=== PATIENT | male | born 1950 | race Two or more races ===

== ENCOUNTER 2023-10-22 11:58 | Emergency (ER) | payer MEDICARE, MEDICAID ==
[~2023-10-22] VITALS: Ht 177.8 cm; Wt 98.6 kg
[2023-10-22 12:50] LABS: Urine Bacteria None Seen /hpf (None Seen)
[2023-10-22 13:09] LABS: Urine Blood Negative /uL (Negative); Urine Clarity Clear (Clear); Urine Color Colorless (Yellow); Urine Protein, UAD Negative (Negative); Urine Specific Gravity 1.004 (1.001-1.035); Urine Urobilinogen Normal (Negative); Urine WBC <1 /hpf (0 - 3); Urine pH 6.5 (5.0-9.0)
[2023-10-22 13:33] LABS: Basophils # (auto) 0 10 ^3/uL (0-0.2); Basophils % (auto) 0.3 % (0.0-2.0); Eosinophils # (auto) 0.1 10 ^3/uL (0-0.8); Eosinophils % (auto) 1.6 % (0.0-7.0); Hematocrit 39.3 % (41.0-53.0); Hemoglobin 13.4 g/dL (13.5-17.5); Lymphocytes # (auto) 2.6 10 ^3/uL (0.4-5.4); Lymphocytes % (auto) 33.5 % (10.0-50.0); Mean Corpuscular Hgb Conc. 34.1 g/dL (32.0-36.0); Mean Corpuscular Volume 90.8 fL (80.0-100.0); Monocytes # (auto) 1.1 10 ^3/uL (0-1.3); Monocytes % (auto) 14.4 % (0.0-12.0); Neutrophils % (auto) 50.2 % (37.0-80.0); Nucleated Red Blood Cells % 0.1 %; Red Blood Cells 4.33 10^6/uL (4.5-5.90); Red Cell Distribution Width 15.8 % (11.8-14.3); White Blood Cell 7.9 10^3/uL (4.4-10.8)
[2023-10-22 13:50] LABS: Alkaline Phosphatase 74 U/L (46-116); Anion Gap 5 (5-15); Aspartate Aminotransferase 10 U/L (13-40); BUN/Creatinine Ratio 7.8 (10.0-20.0); Blood Urea Nitrogen 8 mg/dL (9-23); Carbon Dioxide 26 mmol/L (20-30); Chloride 102 mmol/L (98-107); Glucose 128 mg/dL (74-106); Potassium 4.2 mmol/L (3.5-5.1); Sodium 133 mmol/L (136-145)
[2023-10-22 13:51] LABS: Bilirubin, Total 0.3 mg/dL (0.2-1.0); Total Protein 6.5 g/dL (5.7-8.2)
[2023-10-22 13:52] LABS: Alanine Aminotransferase < 9 U/L (7-40)
[2023-10-22 14:05] VITALS: PULSE 81; RESP 18; O2SAT 96
[2023-10-22 15:39] VITALS: BP 148/78; PULSE 76; RESP 16; TEMP 98.1; O2SAT 92
== END 2023-10-22 15:44 | disposition home or self-care (01) ==
LOC: EDUNIT# 11:58 → EDBD 11:58 → ER 12:02
DX: R10.9 Unspecified abdominal pain (principal); F20.9 Schizophrenia, unspecified; F17.210 Nicotine dependence, cigarettes, uncomplicated
CPT/HCPCS: 36415; 74176; 80053; 81001; 85025

== ENCOUNTER 2023-10-22 23:57 | Inpatient (IN) | payer MEDICARE, MEDICAID ==
[~2023-10-22] VITALS: Ht 185.4 cm; Wt 95.0 kg
[2023-10-23 01:00] VITALS: PULSE 85; RESP 16; O2SAT 96
[2023-10-23] MEDS ORDERED: DOCUSATE SOD 100 MG CAP PO PRN (01:15)
[2023-10-23] MEDS ORDERED: MORPHINE SULFATE INJ 2 MG/ml SYRG IV PRN (01:15)
[2023-10-23] MEDS ORDERED: ACETAMINOPHEN 325 MG TAB PO PRN (01:15)
[2023-10-23] MEDS ORDERED: ONDANSETRON HCL 4 MG/2 ML VIAL IV PRN (01:15)
[2023-10-23] MEDS ORDERED: NITROGLYCERIN 0.4 MG SL TAB SL PRN (01:15)
[2023-10-23] MEDS: SODIUM CHLORIDE 0.9% 1,000 ML IV SCH (02:02)
[2023-10-23] MEDS: HYDROcodone-ACET 5/325MG TAB PO PRN (02:03)
[2023-10-23 03:15] VITALS: BP 145/86; PULSE 71; PULSE 84; RESP 17; RESP 18; TEMP 97.7; O2SAT 91
[2023-10-23 05:00] VITALS: BP 145/86; PULSE 84; RESP 17; TEMP 97.7; O2SAT 91
[2023-10-23] MEDS: MORPHINE SULFATE INJ 2 MG/ml SYRG IV PRN (05:41)
[2023-10-23 08:00] VITALS: BP 114/77; PULSE 87; PULSE 99; RESP 21; TEMP 98.1; O2SAT 93
[2023-10-23 12:00] VITALS: BP 113/66; PULSE 79; RESP 21; TEMP 98.3; O2SAT 93
== END 2023-10-23 12:10 | disposition left against medical advice (07) | DRG 641 ==
LOC: ER 23:57 → EDBD 23:57 → TELE 10-23 01:05 → TELE-WESTW 10-23 03:16
PROVIDERS: ADMIT Nurse Practitioner Family; ATTEND Nurse Practitioner Family
DX: E87.1 Hypo-osmolality and hyponatremia (principal); F20.0 Paranoid schizophrenia; R10.9 Unspecified abdominal pain; F17.210 Nicotine dependence, cigarettes, uncomplicated; N39.8 Other specified disorders of urinary system; Z53.29 Procedure and treatment not carried out because of patient's decision for other reasons; Z79.899 Other long term (current) drug therapy
CPT/HCPCS: 36415; 74176; 80053; 81001; 85025; 93005; 96360; G0378

== ENCOUNTER 2023-10-23 14:46 | Emergency (ER) | payer MEDICARE, MEDICAID ==
[~2023-10-23] VITALS: Ht 177.8 cm; Wt 95.8 kg
[2023-10-23 15:10] VITALS: BP 111/67; PULSE 98; RESP 16; O2SAT 91
[2023-10-23] MEDS: HYDROcodone-ACET 10/325MG TAB PO ONE (17:19)
== END 2023-10-23 18:26 | disposition home or self-care (01) ==
LOC: ER 14:55
DX: M79.18 Myalgia, other site (principal); R10.9 Unspecified abdominal pain; F17.210 Nicotine dependence, cigarettes, uncomplicated

== ENCOUNTER → 2023-10-23 | Emergency (ER) | payer MEDICARE, MEDICAID ==
[~2023-10-23] VITALS: Ht 177.8 cm; Wt 94.5 kg
[2023-10-23 21:59] VITALS: BP 97/57; PULSE 64; RESP 15; O2SAT 94
[2023-10-23 22:48] LABS: Urine Bacteria None Seen /hpf (None Seen)
[2023-10-23 23:05] LABS: Urine Blood 1+ /uL (Negative); Urine Clarity Clear (Clear); Urine Color Yellow (Yellow); Urine Mucus FEW (None Seen); Urine Protein, UAD TRACE (Negative); Urine Specific Gravity 1.019 (1.001-1.035); Urine Urobilinogen Normal (Negative); Urine WBC 1 /hpf (0 - 3)
== END | disposition left against medical advice (07) ==
LOC: ER 21:46
DX: R10.9 Unspecified abdominal pain (principal); F17.210 Nicotine dependence, cigarettes, uncomplicated; F20.9 Schizophrenia, unspecified
CPT/HCPCS: 74176; 81001

== ENCOUNTER 2024-01-14 12:09 | Emergency (ER) | payer MEDICARE, MEDICAID ==
[~2024-01-14] VITALS: Ht 175.3 cm; Wt 105.0 kg
[~2024-01-14 12:09] MED LIST: ATOR40TA52 PO; BISA-65 PR; DIVA-139 PO; DIVA-91 PO; MAGN400S25 PO; RIS1T PO; RISP0.2535 PO; RISP3TAB44 PO
[2024-01-14 13:15] VITALS: PULSE 77; RESP 16; O2SAT 96
[2024-01-14 15:46] LABS: Basophils # (auto) 0.1 10 ^3/uL (0-0.2); Basophils % (auto) 0.9 % (0.0-2.0); Eosinophils # (auto) 0.1 10 ^3/uL (0-0.8); Eosinophils % (auto) 1.8 % (0.0-7.0); Hematocrit 42.1 % (41.0-53.0); Hemoglobin 14.2 g/dL (13.5-17.5); Lymphocytes # (auto) 3.3 10 ^3/uL (0.4-5.4); Lymphocytes % (auto) 42.1 % (10.0-50.0); Mean Corpuscular Hemoglobin 31.4 pg (28.0-32.0); Mean Corpuscular Hgb Conc. 33.8 g/dL (32.0-36.0); Mean Corpuscular Volume 92.7 fL (80.0-100.0); Monocytes # (auto) 0.9 10 ^3/uL (0-1.3); Monocytes % (auto) 11.6 % (0.0-12.0); Neutrophils # (auto) 3.5 10 ^3/uL (1.6-8.6); Neutrophils % (auto) 43.6 % (37.0-80.0); Nucleated Red Blood Cells % 0.1 %; Platelet Count (auto) 318 10^3/uL (140-450); Red Blood Cells 4.54 10^6/uL (4.5-5.90); Red Cell Distribution Width 16.2 % (11.8-14.3); White Blood Cell 7.9 10^3/uL (4.4-10.8)
[2024-01-14 15:47] LABS: Anion Gap 6 (5-15); Carbon Dioxide 27 mmol/L (20-31); Chloride 102 mmol/L (98-107); Potassium 3.3 mmol/L (3.5-5.1); Sodium 135 mmol/L (136-145)
[2024-01-14 15:52] LABS: Glucose 80 mg/dL (74-106)
[2024-01-14 15:53] LABS: BUN/Creatinine Ratio 14.7 (10.0-20.0); Blood Alcohol < 3.0 mg/dL (<10); Blood Urea Nitrogen 15 mg/dL (9-23)
[2024-01-14] MEDS: POTASSIUM CHL 20 Meq TABLET PO ONE (16:21)
[2024-01-14 20:32] VITALS: RESP 16; O2SAT 96
[2024-01-14] MEDS: OLANZapine 5 MG TAB PO SCH (21:35)
[2024-01-14] MEDS: LORazepam 2MG/ML-1ML VIAL IM ONE (21:46)
[2024-01-15 07:30] VITALS: PULSE 78; RESP 16
[2024-01-16 07:47] VITALS: PULSE 85; RESP 17; O2SAT 95
[2024-01-16 08:00] VITALS: BP 146/72; PULSE 85; RESP 16; TEMP 98; O2SAT 95
[2024-01-16 09:37] LABS: Urine Bacteria None Seen /hpf (None Seen)
[2024-01-16 10:02] LABS: Urine Blood Negative /uL (Negative); Urine Clarity Clear (Clear); Urine Color Colorless (Yellow); Urine Protein, UAD Negative (Negative); Urine Specific Gravity 1.007 (1.001-1.035); Urine Urobilinogen Normal (Negative); Urine WBC <1 /hpf (0 - 3); Urine pH 6.5 (5.0-9.0)
[2024-01-16 10:09] LABS: Amphetamine Screen, Urine Neg (NEGATIVE)
[2024-01-16 10:10] LABS: Barbiturate Scree,Urine Neg (NEGATIVE); Benzodiazephine Screen, Urine Neg (NEGATIVE); Cocaine Screen, Urine Neg (NEGATIVE); Opiate Scree,Urine Neg (NEGATIVE)
[2024-01-16 10:11] LABS: Cannabinoid Screen, Urine Neg (NEGATIVE); Phencyclidine Screen, Urine Neg (NEGATIVE)
[2024-01-16] MEDS ORDERED: ONDANSETRON HCL 4 MG/2 ML VIAL IV PRN (15:15)
[2024-01-16] MEDS ORDERED: ACETAMINOPHEN 325 MG TAB PO PRN (15:15)
[2024-01-16] MEDS ORDERED: DOCUSATE SOD 100 MG CAP PO PRN (15:15)
[2024-01-16] MEDS ORDERED: HYDROcodone-ACET 5/325MG TAB PO PRN (15:15)
[2024-01-16] MEDS ORDERED: SODIUM CHLOR 0.9% PF (SALINE LOCK) 10ML VIAL/SYR IV SCH (22:00)
[2024-01-16] MEDS ORDERED: ATORVASTATIN 20 MG TAB PO SCH (22:00)
== END 2024-01-16 19:18 ==
LOC: EDBD 12:09 → EDUNIT# 12:09 → ER 12:09
DX: F20.9 Schizophrenia, unspecified (principal); E87.6 Hypokalemia; F17.200 Nicotine dependence, unspecified, uncomplicated; Z79.899 Other long term (current) drug therapy
CPT/HCPCS: 36415; 80048; 80307; 80320; 81001; 85025; 96372; 99285; J2060

== ENCOUNTER 2024-01-23 17:33 | Inpatient (IN) | payer MEDICARE, MEDICAID ==
[~2024-01-23] VITALS: Ht 175.3 cm; Wt 93.1 kg
--- NOTE | 2024-01-23 17:57 | ED.PDOC ---
Psychiatric HPI Comments 73 year old male presents to the ED with chief complaint of hallucinations. EMS reports patient is coming from [facility] with concern of auditory hallucinations and being very concerned with his own wellbeing. EMS relays patient has been experience the disturbances for a few days now. Patient denies any SI, HI, visual hallucinations, SOB, dizziness, headache, or chest pain. Time Seen by MD: 17:52 Primary Care Provider: UNKNOWN Reviewed Notes: Nurses Notes, Medications, Allergies Information Source: Patient Mode of Arrival: Ambulatory Severity: Unable to Care for Self, Able to Control Self Severity of Pain: None Severity of Mental Status: Moderate Severity of Symptoms: None Timing: Days Duration: Since onset Prehospital treatment: None Presents with: None History of: Schizophrenia Associated signs and symptoms: Hallucinations Past Medical History PAST MEDICAL HISTORY: High Lipids, HTN, Schizophrenia Surgical History (Other): Left hip surgery, splenectomy, pacemaker Family History Family History: Reviewed,noncontributory to illness, Unknown Social History Smoker: Cigarettes Alcohol: Denies ETOH Use Drugs: Marijuana, Methamphetamine Lives In: Home Constitutional: denies: chills, diaphoresis, fatigue, fever, malaise, sweats, weakness, others EENTM: denies: blurred vision, double vision, ear bleeding, ear discharge, ear drainage, ear pain, ear ringing, eye pain, eye redness, hearing loss, mouth pain, mouth swelling, nasal discharge, nose bleeding, nose congestion, nose pain, photophobia, tearing, throat pain, throat swelling, voice changes, others Respiratory: denies: cough, hemoptysis, orthopnea, SOB at rest, shortness of breath, SOB with excertion, stridor, wheezing, others Cardiovascular: denies: chest pain, dizzy spells, diaphoresis, Dyspnea on exertion, edema, irregular heart beat, left arm pain, lightheadedness, palpitations, PND, syncope, others Gastrointestinal: denies: abdomen distended, abdominal pain, blood streaked bowels, constipated, diarrhea, dysphagia, difficulty swallowing, hematemesis, melena, nausea, poor appetite, poor fluid intake, rectal bleeding, rectal pain, vomiting, others Genitourinary: denies: burning, dysuria, flank pain, frequency, hematuria, incontinence, penile discharge, penile sore, pain, testicle pain, testicle swelling, urgency, others Neurological: denies: dizziness, fainting, headache, left sided numbness, left sided weakness, numbness, paresthesia, pre-existing deficit, right sided numbness, right sided weakness, seizure, speech problems, tingling, tremors, weakness, others Musculoskeletal: denies: back pain, gout, joint pain, joint swelling, muscle pain, muscle stiffness, neck pain, others Integumetry: denies: bruises, change in color, change in hair/nails, dryness, laceration, lesions, lumps, rash, wounds, others Allergic/Immunocompromised: denies: Difficulty Healing, Frequent Infections, Hives, Itching, others Hematologic/Lymphatic: denies: anemia, blood clots, easy bleeding, easy bruising, swollen glands, others Endocrine: denies: excessive hunger, excessive sweating, excessive thirst, excessive urination, flushing, intolerance to cold, intolerance to heat, unexplained weight gain, unexplained weight loss, others Psychiatric: reports: schizophrenia; denies: anxiety, bipolar disorder, depression, hopeless, panic disorder, sleepless, suicidal, others All Other Systems: Reviewed and Negative Physical Exam General Appearance: Mild Distress HEENT: Normal ENT Inspection, Pharynx Normal, TMs Normal Neck: Full Range of Motion, Non-Tender, Normal, Normal Inspection Respiratory: Chest Non-Tender, Lungs Clear, No Accessory Muscle Use, No Respiratory Distress, Normal Breath Sounds Cardiovascular: No Edema, No JVD, No Murmur, No Gallop, Normal Peripheral Pulses, Regular Rate/Rhythm Breast Exam: Deferred Gastrointestinal: No Organomegaly, Non Tender, No Pulsatile Mass, Normal Bowel Sounds, Soft Genitalia: Deferred Pelvic: Deferred Rectal: Deferred Extremities: Inflammation, Normal capillary refill, Pedal edema Musculoskeletal : Apperance: Normal Neurologic: Alert, steam conditioner filling II-XII nml as Tested, Motor Weakness, Normal Affect, Normal Mood, No Sensory Deficits Cerebellar Function: Normal Reflexes: Normal Skin: Dry, Normal Color, Warm Lymphatic: No Adenopathy Was a procedure done? Was a procedure done?: No Psych Differential Dx Psych. Differential Dx: Anxiety, Hopeless, Other (Cellulitis) X-Ray, Labs, Meds, VS Vital Signs Date Time Temp Pulse Resp B/P (MAP) Pulse Ox O2 Delivery O2 Flow Rate FiO2 01/23/24 19:31 71 16 94 Room Air 01/23/24 19:31 97.8 71 16 130/60 (83) 94 97.8 01/23/24 17:33 98.4 86 18 120/78 (92) 97 Lab Test 01/23/24 18:35 Range/Units White Blood Count 7.0 4.4-10.8 10^3/uL Red Blood Count 4.60 4.5-5.90 10^6/uL Hemoglobin 14.5 13.5-17.5 g/dL Hematocrit 42.6 41.0-53.0 % Mean Corpuscular Volume 92.7 80.0-100.0 fL Mean Corpuscular Hemoglobin 31.5 28.0-32.0 pg Mean Corpuscular Hemoglobin Concent 34.0 32.0-36.0 g/dL Red Cell Distribution Width 16.2 H 11.8-14.3 % Platelet Count 294 140-450 10^3/uL Mean Platelet Volume 9.1 6.9-10.8 fL Neutrophils (%) (Auto) 44.6 37.0-80.0 % Lymphocytes (%) (Auto) 38.5 10.0-50.0 % Monocytes (%) (Auto) 12.2 H 0.0-12.0 % Eosinophils (%) (Auto) 4.4 0.0-7.0 % Basophils (%) (Auto) 0.3 0.0-2.0 % Neutrophils # (Auto) 3.1 1.6-8.6 10 ^3/uL Lymphocytes # (Auto) 2.7 0.4-5.4 10 ^3/uL Monocytes # (Auto) 0.9 0-1.3 10 ^3/uL Eosinophils # (Auto) 0.3 0-0.8 10 ^3/uL Basophils # (Auto) 0 0-0.2 10 ^3/uL Nucleated Red Blood Cells 0.1 % Sodium Level 138 136-145 mmol/L Potassium Level 4.4 3.5-5.1 mmol/L Chloride Level 105 98-107 mmol/L Carbon Dioxide Level 30 20-31 mmol/L Anion Gap 3 L 5-15 Blood Urea Nitrogen 17 9-23 mg/dL Creatinine 1.15 0.700-1.30 mg/dL Glomerular Filtration Rate Calc 68 >90 mL/min BUN/Creatinine Ratio 14.8 10.0-20.0 Serum Glucose 93 74-106 mg/dL Calcium Level 9.8 8.7-10.4 mg/dL Plasma/Serum Blood Alcohol < 3.0 <10 mg/dL The patient's CBC is within normal limits The chemistry panel is within normal limits. The alcohol level is negative At this time, an IV Hep-Lock was established The patient is being given clindamycin IV piggyback At this time, the patient is being admitted to the hospitalist. Images Reviewed?: Images reviewed and evaluated by me Time of 1ST Reevaluation: 19:48 Reevaluation 1ST: Unchanged Patient Education/Counseling: Diagnosis, Treatment, Prognosis Family Education/Counseling: No Family Present Departure 1 Departure Time of Disposition: 19:49 Impression: Primary Impression: Auditory hallucinations Additional Impressions: Psychosis Qualified Codes: F29 - Unspecified psychosis not due to a substance or known physiological condition Bilateral lower leg cellulitis Disposition: ADMITTED INPATIENT Admit to: Med Surg Condition: Fair Critical Care Note Critical Care Time?: No Stability Stability form required: Yes Unstable for transfer: ED Physician Assesment (Clinical assesment) Heart Score Heart Score: Heart Score Response (Comments) Value History N/A 0 EKG N/A 0 Age N/A 0 Risk Factors N/A 0 Troponin N/A 0 Total 0 I personally scribed for EZRA MCDANIEL MD ([email or web address]) on 01/23/24 at 17:57. Elec tronically submitted by Jonathan Pickett ([email or web address]). EZRA MCDANIEL MD Jan 23, 2024 17:57
[2024-01-23 19:19] LABS: Basophils # (auto) 0 10 ^3/uL (0-0.2); Basophils % (auto) 0.3 % (0.0-2.0); Eosinophils # (auto) 0.3 10 ^3/uL (0-0.8); Eosinophils % (auto) 4.4 % (0.0-7.0); Hematocrit 42.6 % (41.0-53.0); Hemoglobin 14.5 g/dL (13.5-17.5); Lymphocytes # (auto) 2.7 10 ^3/uL (0.4-5.4); Lymphocytes % (auto) 38.5 % (10.0-50.0); Mean Corpuscular Hemoglobin 31.5 pg (28.0-32.0); Mean Corpuscular Volume 92.7 fL (80.0-100.0); Monocytes # (auto) 0.9 10 ^3/uL (0-1.3); Monocytes % (auto) 12.2 % (0.0-12.0); Neutrophils # (auto) 3.1 10 ^3/uL (1.6-8.6); Neutrophils % (auto) 44.6 % (37.0-80.0); Nucleated Red Blood Cells % 0.1 %; Platelet Count (auto) 294 10^3/uL (140-450); Red Cell Distribution Width 16.2 % (11.8-14.3)
[2024-01-23 19:36] LABS: Chloride 105 mmol/L (98-107); Potassium 4.4 mmol/L (3.5-5.1); Sodium 138 mmol/L (136-145)
[2024-01-23 19:38] LABS: Anion Gap 3 (5-15); Calcium 9.8 mg/dL (8.7-10.4); Carbon Dioxide 30 mmol/L (20-31)
[2024-01-23 19:39] LABS: BUN/Creatinine Ratio 14.8 (10.0-20.0); Blood Alcohol < 3.0 mg/dL (<10); Blood Urea Nitrogen 17 mg/dL (9-23); Glucose 93 mg/dL (74-106)
[2024-01-23] MEDS: CLINDAMYCIN 600MG IV 50 ML IV ONE (20:22)
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
[2024-01-23] MEDS ORDERED: MORPHINE SULFATE INJ 2 MG/ml SYRG IV PRN (22:30)
[2024-01-23] MEDS ORDERED: ONDANSETRON HCL 4 MG/2 ML VIAL IV PRN (22:30)
[2024-01-23] MEDS ORDERED: ACETAMINOPHEN 325 MG TAB PO PRN (22:30)
[2024-01-23] MEDS ORDERED: NITROGLYCERIN 0.4 MG SL TAB SL PRN (22:30)
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
[2024-01-24] VITALS (8 sets, daily range): BP systolic 131–151; BP diastolic 62–79; PULSE 75–81; RESP 16–18; TEMP 97.6–98.4; O2SAT 94–98
[2024-01-24] MEDS: ceFAZolin 1GM/50ML 50 ML IV SCH (05:39)
[2024-01-24] MEDS: SODIUM CHLOR 0.9% PF (SALINE LOCK) 10ML VIAL/SYR IV SCH (05:39)
[2024-01-24] MEDS: BENZTROPINE MESY 0.5 MG TAB PO SCH (06:06)
[2024-01-24] MEDS: risperiDONE 1 MG TAB PO SCH (06:07)
[2024-01-24] MEDS: PROPRANOLOL HCL 20 MG TAB PO SCH (06:07)
--- NOTE | 2024-01-24 06:45 | DVH ---
PROCEDURE: radiographs. INDICATION: 73 years old, Male; ankle twist. TECHNIQUE: 2 views of the left ankle were obtained. COMPARISON: None FINDINGS: There is no evidence of fracture or dislocation. Joint spaces are maintained. The soft tis sues are unremarkable. IMPRESSION: 1. No fracture or dislocation.
[2024-01-24 07:32] LABS: Basophils # (auto) 0 10 ^3/uL (0-0.2); Basophils % (auto) 0.2 % (0.0-2.0); Eosinophils # (auto) 0.3 10 ^3/uL (0-0.8); Eosinophils % (auto) 3.7 % (0.0-7.0); Hematocrit 40.9 % (41.0-53.0); Lymphocytes # (auto) 4.3 10 ^3/uL (0.4-5.4); Lymphocytes % (auto) 53.1 % (10.0-50.0); Mean Corpuscular Hgb Conc. 34.1 g/dL (32.0-36.0); Mean Corpuscular Volume 93.8 fL (80.0-100.0); Monocytes # (auto) 0.8 10 ^3/uL (0-1.3); Monocytes % (auto) 10.2 % (0.0-12.0); Neutrophils # (auto) 2.7 10 ^3/uL (1.6-8.6); Neutrophils % (auto) 32.8 % (37.0-80.0); Nucleated Red Blood Cells % 0.1 %; Platelet Count (auto) 281 10^3/uL (140-450); Red Blood Cells 4.37 10^6/uL (4.5-5.90); Red Cell Distribution Width 15.7 % (11.8-14.3); White Blood Cell 8.1 10^3/uL (4.4-10.8)
[2024-01-24 07:43] LABS: Alanine Aminotransferase 23 U/L (7-40); Alkaline Phosphatase 67 U/L (46-116); Anion Gap 4 (5-15); Calcium 9.7 mg/dL (8.7-10.4); Carbon Dioxide 29 mmol/L (20-31); Chloride 106 mmol/L (98-107); Glucose 98 mg/dL (74-106); Potassium 4.2 mmol/L (3.5-5.1); Sodium 139 mmol/L (136-145)
[2024-01-24 07:44] LABS: Albumin 3.8 g/dL (3.2-4.8); Aspartate Aminotransferase 18 U/L (13-40); Bilirubin, Total 0.3 mg/dL (0.2-1.0); Total Protein 6.4 g/dL (5.7-8.2)
[2024-01-24 07:46] LABS: Blood Urea Nitrogen 16 mg/dL (9-23)
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
--- NOTE | 2024-01-24 11:24 | DVH ---
Bilateral lower extremity venous duplex Clinical History: severe tenderness to palpation in the calves Comparison: None Technique: Duplex Doppler evaluation of the deep venous systems of both lower extremities from the common femora l veins to the popliteal veins including color Doppler and spectral/pulsed waveform analysis was perf ormed. Findings: RIGHT SIDE: The common femoral vein demonstrates appropriate compressibility and waveform variability. There is compressibility/patency of the great saphenous vein at the proximal thigh. The femoral vein demonstrates appropriate compressibility and waveform variability. The deep femoral vein demonstrates appropriate compressibility and waveform variability. The popliteal vein demonstrates appropriate compressibility and waveform variability. There is color flow at the tibioperoneal trunk and in the posterior tibial vein. Mild subcutaneous edema noted in the calf. LEFT SIDE: The common femoral vein demonstrates appropriate compressibility and waveform variability. There is compressibility/patency of the great saphenous vein at the proximal thigh. The femoral vein demonstrates appropriate compressibility and waveform variability. The deep femoral vein demonstrates appropriate compressibility and waveform variability. The popliteal vein and calf vessels could not be evaluated due to patient refusal to continue with th e exam. Mildly prominent benign-appearing lymph nodes are seen in the left groin measuring up to 2.3 x 0.6 cm . Impression: 1. No evidence of DVT in the right lower extremity. 2. No DVT in the left common femoral and femoral veins. The popliteal and calf veins could not be valeria luated due to patient refusal continue with the test.
--- NOTE | 2024-01-24 11:57 | DVH ---
EXAM: XY CHEST PORTABLE Indication:cough Technique: Single frontal view of the chest was obtained Comparison: XY CHEST XRAY 1 VIEW on DOS: 11/04/23 FINDINGS: Lines and Tubes: None Lungs: No focal consolidation. Pleura: No effusion. No pneumothorax. Cardiomediastinal contours: Unremarkable Bones: No acute osseous abnormality. IMPRESSION: No acute cardiopulmonary disease.
[2024-01-24 12:26] LABS: Urine Bacteria None Seen /hpf (None Seen)
[2024-01-24 12:45] LABS: Urine Blood Negative /uL (Negative); Urine Clarity Clear (Clear); Urine Color Colorless (Yellow); Urine Protein, UAD Negative (Negative); Urine Specific Gravity 1.007 (1.001-1.035); Urine Urobilinogen Normal (Negative); Urine WBC <1 /hpf (0 - 3); Urine pH 7.5 (5.0-9.0)
[2024-01-24 12:56] LABS: Amphetamine Screen, Urine Neg (NEGATIVE); Barbiturate Scree,Urine Neg (NEGATIVE); Benzodiazephine Screen, Urine Neg (NEGATIVE); Cannabinoid Screen, Urine Neg (NEGATIVE); Cocaine Screen, Urine Neg (NEGATIVE); Opiate Scree,Urine Neg (NEGATIVE); Phencyclidine Screen, Urine Neg (NEGATIVE)
[2024-01-24 14:16] LABS: COVID19 ANTIGEN SOFIA FIA NEGATIVE (NEGATIVE)
[2024-01-24 14:17] LABS: Rapid Influenza A Negative (Negative); Rapid Influenza B Negative (Negative)
[2024-01-24] MEDS ORDERED: hydrALAZINE HCL 20 MG/ML VL IV PRN (15:15)
[2024-01-24] MEDS ORDERED: amLODIPine BESYLATE 5 MG TAB PO ONE (15:30)
[2024-01-24] MEDS: MUPIROCIN 2% OINT 15gm or 22gm FOR MRSA NARES EACHNOSTRI SCH (22:26)
[2024-01-25 05:00] VITALS: BP 111/61; PULSE 84; RESP 19; TEMP 98.1; O2SAT 92
[2024-01-25 05:29] LABS: Basophils # (auto) 0 10 ^3/uL (0-0.2); Basophils % (auto) 0.7 % (0.0-2.0); Eosinophils # (auto) 0.3 10 ^3/uL (0-0.8); Eosinophils % (auto) 4.1 % (0.0-7.0); Hematocrit 39.8 % (41.0-53.0); Hemoglobin 13.6 g/dL (13.5-17.5); Lymphocytes % (auto) 46.3 % (10.0-50.0); Mean Corpuscular Hemoglobin 32.2 pg (28.0-32.0); Mean Corpuscular Hgb Conc. 34.3 g/dL (32.0-36.0); Mean Corpuscular Volume 93.9 fL (80.0-100.0); Monocytes # (auto) 0.9 10 ^3/uL (0-1.3); Monocytes % (auto) 13.1 % (0.0-12.0); Neutrophils # (auto) 2.4 10 ^3/uL (1.6-8.6); Neutrophils % (auto) 35.8 % (37.0-80.0); Nucleated Red Blood Cells % 0.1 %; Platelet Count (auto) 272 10^3/uL (140-450); Red Blood Cells 4.24 10^6/uL (4.5-5.90); Red Cell Distribution Width 15.6 % (11.8-14.3); White Blood Cell 6.6 10^3/uL (4.4-10.8)
[2024-01-25 09:09] VITALS: BP 125/71; PULSE 68; RESP 22; TEMP 97.3; O2SAT 94
[2024-01-25] MEDS ORDERED: amLODIPine BESYLATE 5 MG TAB PO SCH (10:00)
[2024-01-25 13:00] VITALS: BP 136/69; PULSE 64; RESP 20; TEMP 97.2; O2SAT 97
[2024-01-25] MEDS ORDERED: CEPH500C PO (13:45)
[2024-01-25] MEDS ORDERED: MUPI2CRE17 EX (13:47)
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
== END 2024-01-25 13:23 | disposition home or self-care (01) | DRG 602 ==
LOC: EDBD 17:33 → EDUNIT# 17:33 → ER 17:46 → OVERFLOW 22:22 → CENTRAL 01-24 01:47
PROVIDERS: ADMIT Internal Medicine; ATTEND Internal Medicine
DX: L03.116 Cellulitis of left lower limb (principal); G92.8 Other toxic encephalopathy; F20.9 Schizophrenia, unspecified; F31.9 Bipolar disorder, unspecified; R73.03 Prediabetes; I10 Essential (primary) hypertension; F17.210 Nicotine dependence, cigarettes, uncomplicated; E78.5 Hyperlipidemia, unspecified; L03.115 Cellulitis of right lower limb; Z90.81 Acquired absence of spleen; Z95.0 Presence of cardiac pacemaker
CPT/HCPCS: 36415; 71045; 73600; 80048; 80053; 80307; 80320; 81001; 82306; 82607; 83036; 83880; 84443; 85025; 87081; 87086; 87426; 87804; 93970; G0378; J3490

== ENCOUNTER 2024-08-03 10:05 | Inpatient (IN) | payer MEDICARE, MEDICAID ==
[~2024-08-03] VITALS: Ht 175.3 cm; Wt 87.0 kg
[~2024-08-03 10:05] MED LIST changes: +CEPH500C PO; +MUPI2CRE17 EX
--- NOTE | 2024-08-03 10:28 | ED.PDOC ---
History of Present Illness HPI Comments 74M BIBA w/ prior MHx of COPD, SZ, GERD, high lipids, liver [place], HTN and Schizophrenic; SHx of Splenectomy, left hip Sx, pacemaker and c/ of ALOC. EMS report that the pt pt was picked up via [facility], for the pt having had ALOC for the past 3 days and of the pt's speech declining, pt is lethargic, and tired. Denies chills, fever, N/V/D, SOB, CP. No other associated symptoms, modifiers, recent injuries or sick contacts present at this time. Chief Complaint: ALOC Time Seen by MD: 10:00 Primary Care Provider: UNKNOWN Reviewed Notes: Nurses Notes, Medications, Allergies Allergies: Coded Allergies: NO KNOWN ALLERGIES (Unverified , 10/23/23) Home Meds Active Scripts Mupirocin Calcium (Topical) (MUPIROCIN) 2 % Cre, 2 % EX 2XW for 4 Days, #1 CRE Prov:TYLOR REDD RESIDENT 01/25/24 Cephalexin Monohydrate (Cephalexin) 500 Mg Cap, 1 CAP PO BID for 5 Days, #20 CAP Prov:TYLOR REDD RESIDENT 01/25/24 Risperidone (RisperDAL TABLET) 1 Mg Tb, 1 TAB PO BID, #60 TAB 1 Refill Prov:BETHANY EMERY MD 11/09/23 Reported Medications Bisacodyl (Bisacodyl Ec) 5 Mg Tab, 10 MG SC DAILYP PRN for FOR CONSTIPATION, MG 11/05/23 Magnesium Hydroxide (Milk Of Magnesia) 400 Mg/5 Ml [place], 400 MG PO, ML 11/05/23 Risperidone (Risperidone) 3 Mg Tab, 1 TAB PO BID, #60 TAB 2 Refills 11/05/23 Risperidone (Risperidone) 0.25 Mg Tab, 0.25 MG PO BID, TAB 11/05/23 Divalproex Sodium (Depakote) 500 Mg Tab, 1 TAB PO BID, #60 TAB 1 Refill 11/05/23 Divalproex Sodium (Depakote) 250 Mg Tab, 1 TAB PO BID, #60 TAB 2 Refills 11/05/23 Atorvastatin Calcium (ATORVASTATIN CALCIUM) 40 Mg Tab, 1 TAB PO DAILY, #30 TAB 5 Refills 11/05/23 Information Source: Patient, Emergency Med Personnel Mode of Arrival: EMS Severity: Moderate Timing: Days Duration: Since onset, Days Prehospital treatment: None Past Medical History PAST MEDICAL HISTORY: COPD, GERD, High Lipids, HTN, Schizophrenia, Seizures Surgical History: Pacemaker Surgical History (Other): Splenectomy, left hip Sx Family History Family History: Reviewed,noncontributory to illness, Unknown Social History Smoker: Unknown Alcohol: Unknown Drugs: Unknown Lives In: Home Unable to Obtain due to: Altered Mental Status All Other Systems: Reviewed and Negative Physical Exam General Appearance: Moderate Distress HEENT: Normal ENT Inspection, Pharynx Normal, TMs Normal Neck: Full Range of Motion, Non-Tender, Normal, Normal Inspection Respiratory: Chest Non-Tender, Lungs Clear, No Accessory Muscle Use, No Re spiratory Distress, Normal Breath Sounds Cardiovascular: No Edema, No JVD, No Murmur, No Gallop, Normal Peripheral Pulses, Regular Rate/Rhythm Breast Exam: Deferred Gastrointestinal: No Organomegaly, Non Tender, No Pulsatile Mass, Normal Bowel Sounds, Soft Genitalia: Deferred Pelvic: Deferred Rectal: Deferred Extremities: No calf tenderness, Normal capillary refill, Normal inspection, Normal range of motion, Non-tender, No pedal edema Musculoskeletal : Apperance: Normal Neurologic: glassware defect repairer II-XII nml as Tested, Motor Weakness, No Sensory Deficits, Other (Confused with altered mental status) Cerebellar Function: Unable to Test Reflexes: Normal Skin: Dry, Pallor, Warm Lymphatic: No Adenopathy Was a procedure done? Was a procedure done?: No EKG EKG : Pulse Rate (adult): 65 [place]: LAD Cardiac Rhythm: NSR Block: None Hypertrophy: None ST: Normal Differential Dx Considerations may include: Encephalopathy, CVA, elevated ammonia, sepsis X-Ray, Labs, Meds, VS Vital Signs Date Time Temp Pulse Resp B/P (MAP) Pulse Ox O2 Delivery O2 Flow Rate FiO2 08/03/24 10:29 65 08/03/24 10:13 98.0 70 16 105/66 (79) 97 98.0 08/03/24 10:05 65 Lab Test 08/03/24 10:48 Range/Units White Blood Count 7.1 4.4-10.8 10^3/uL Red Blood Count 4.68 4.5-5.90 10^6/uL Hemoglobin 14.6 13.5-17.5 g/dL Hematocrit 43.4 41.0-53.0 % Mean Corpuscular Volume 92.7 80.0-100.0 fL Mean Corpuscular Hemoglobin 31.3 28.0-32.0 pg Mean Corpuscular Hemoglobin Concent 33.8 32.0-36.0 g/dL Red Cell Distribution Width 14.8 H 11.8-14.3 % Platelet Count 240 140-450 10^3/uL Mean Platelet Volume 9.0 6.9-10.8 fL Neutrophils (%) (Auto) 48.9 37.0-80.0 % Lymphocytes (%) (Auto) 35.4 10.0-50.0 % Monocytes (%) (Auto) 12.6 H 0.0-12.0 % Eosinophils (%) (Auto) 2.8 0.0-7.0 % Basophils (%) (Auto) 0.3 0.0-2.0 % Neutrophils # (Auto) 3.5 1.6-8.6 10 ^3/uL Lymphocytes # (Auto) 2.5 0.4-5.4 10 ^3/uL Monocytes # (Auto) 0.9 0-1.3 10 ^3/uL Eosinophils # (Auto) 0.2 0-0.8 10 ^3/uL Basophils # (Auto) 0 0-0.2 10 ^3/uL Nucleated Red Blood Cells 0.1 % Sodium Level 139 136-145 mmol/L Potassium Level 3.7 3.5-5.1 mmol/L Chloride Level 105 98-107 mmol/L Carbon Dioxide Level 28 20-31 mmol/L Anion Gap 6 5-15 Blood Urea Nitrogen 19 9-23 mg/dL Creatinine 0.92 0.700-1.30 mg/dL Glomerular Filtration Rate Calc 88 >90 mL/min BUN/Creatinine Ratio 20.7 H 10.0-20.0 Serum Glucose 134 H 74-106 mg/dL Calcium Level 9.8 8.7-10.4 mg/dL Total Bilirubin 0.3 0.2-1.0 mg/dL Aspartate Amino Transferase (AST) 25 13-40 U/L Alanine Aminotransferase (ALT) 16 7-40 U/L Alkaline Phosphatase 71 46-116 U/L Ammonia < 10 L 11-32 umol/L Total Protein 7.0 5.7-8.2 g/dL Albumin 4.3 3.2-4.8 g/dL Plasma/Serum Blood Alcohol < 3.0 <10 mg/dL IMPRESSION: No acute intrathoracic abnormality. The CAT scan of the head shows: No sign of any acute disease The ammonia level is negative The patient's chemistry panel and CBC are within normal limits The patient remains somewhat confused The patient was being admitted at this time Images Reviewed?: Images reviewed and evaluated by me Time of 1ST Reevaluation: 10:30 Reevaluation 1ST: Unchanged Patient Education/Counseling: Diagnosis, Treatment, Prognosis Family Education/Counseling: No Family Present Departure 1 Departure Time of Disposition: 13:06 Impression: Primary Impression: Altered mental status Qualified Codes: R41.82 - Altered mental status, unspecified Additional Impression: Metabolic encephalopathy Disposition: ADMITTED INPATIENT Admit to: [facility] Condition: Fair Critical Care Note Critical Care Time?: Yes (55 min-critical care time only) Stability Stability form required: Yes Unstable for transfer: Telemetry monitoring (Telemetry monitoring required), ED Physician Assesment (Clinical assesment) Heart Score Heart Score: Heart Score Response (Comments) Value History N/A 0 EKG N/A 0 Age N/A 0 Risk Factors N/A 0 Troponin N/A 0 Total 0 I personally scribed for EZRA MCDANIEL MD ([email or web address]) on 08/03/24 at 10:28. Electronically submitted by Darwin Collazo ([employer]). I personally scribed for EZRA MCDANIEL MD ([email or web address]) on 08/03/24 at 10:29. Electronically submitted by Darwin Collazo ([employer]). I personally scribed for EZRA MCDANIEL MD ([email or web address]) on 08/03/24 at 11:16. Electronically submitted by Darwin Collazo ([employer]). EZRA MCDANIEL MD August 03, 2024 10:28
--- NOTE | 2024-08-03 11:07 | DVH ---
XY CHEST PORTABLE, HISTORY: aloc COMPARISON: XY CHEST PORTABLE on DOS: 01/24/24, XY CHEST XRAY 1 VIEW on DOS: 11/04/23 XY CHEST PORTABLE on DOS: 01/24/24, XY CHEST XRAY 1 VIEW on DOS: 11/04/23 TECHNICAL DATA: 1 view of the chest was obtained. FINDINGS: Lines and tubes: None Cardiomediastinal silhouette: normal Pulmonary vasculature: normal Lung expansion: normal Lung airspace: normal Lung interstitium: normal Pleura: normal Pneumothorax: no Bones: Unremarkable Other: no IMPRESSION: No acute intrathoracic abnormality.
[2024-08-03 11:10] LABS: Basophils # (auto) 0 10 ^3/uL (0-0.2); Basophils % (auto) 0.3 % (0.0-2.0); Eosinophils # (auto) 0.2 10 ^3/uL (0-0.8); Eosinophils % (auto) 2.8 % (0.0-7.0); Hematocrit 43.4 % (41.0-53.0); Hemoglobin 14.6 g/dL (13.5-17.5); Lymphocytes # (auto) 2.5 10 ^3/uL (0.4-5.4); Lymphocytes % (auto) 35.4 % (10.0-50.0); Mean Corpuscular Hemoglobin 31.3 pg (28.0-32.0); Mean Corpuscular Hgb Conc. 33.8 g/dL (32.0-36.0); Mean Corpuscular Volume 92.7 fL (80.0-100.0); Monocytes # (auto) 0.9 10 ^3/uL (0-1.3); Monocytes % (auto) 12.6 % (0.0-12.0); Neutrophils # (auto) 3.5 10 ^3/uL (1.6-8.6); Neutrophils % (auto) 48.9 % (37.0-80.0); Nucleated Red Blood Cells % 0.1 %; Platelet Count (auto) 240 10^3/uL (140-450); Red Blood Cells 4.68 10^6/uL (4.5-5.90); Red Cell Distribution Width 14.8 % (11.8-14.3); White Blood Cell 7.1 10^3/uL (4.4-10.8)
[2024-08-03 11:22] LABS: Alanine Aminotransferase 16 U/L (7-40); Albumin 4.3 g/dL (3.2-4.8); Alkaline Phosphatase 71 U/L (46-116); Anion Gap 6 (5-15); Aspartate Aminotransferase 25 U/L (13-40); BUN/Creatinine Ratio 20.7 (10.0-20.0); Bilirubin, Total 0.3 mg/dL (0.2-1.0); Blood Urea Nitrogen 19 mg/dL (9-23); Calcium 9.8 mg/dL (8.7-10.4); Carbon Dioxide 28 mmol/L (20-31); Chloride 105 mmol/L (98-107); Potassium 3.7 mmol/L (3.5-5.1); Sodium 139 mmol/L (136-145)
[2024-08-03 11:23] LABS: Blood Alcohol < 3.0 mg/dL (<10); Glucose 134 mg/dL (74-106)
--- NOTE | 2024-08-03 12:17 | DVH ---
CLINICAL INFORMATION: Acute loss of consciousness. TECHNIQUE: Axial imaging was obtained through the brain without contrast. Coronal and sagittal reform atted images were obtained, reviewed, and stored. Images were reviewed in brain and bone windows. Al l CT scans at this medical facility are performed using dose modulation techniques as appropriate to a performed exam including the following: Automated exposure control was utilized; adjustment of the MA and/or KV according to patient size; and use of iterative reconstruction technique. CTDIvol = 63.2 5 mGy DLP = 1244.64 mGy-cm COMPARISON: CT HEAD WITHOUT CONTRAST on DOS: 11/04/23 FINDINGS: There is no acute intracranial hemorrhage. No mass effect or midline shift. The ventricles and sulci are within normal limits in size for age. Basal cisterns are patent. The calvarium is unre markable. Paranasal sinuses and mastoid air cells are clear. IMPRESSION: 1. No CT evidence of acute intracranial abnormality. 2. Nonacute findings as detailed above.
[2024-08-03 18:15] VITALS: PULSE 72; RESP 17; O2SAT 90
[2024-08-03 18:43] LABS: Urine Bacteria None Seen /hpf (None Seen)
--- NOTE | 2024-08-03 19:05 | ECG ---
[facility] Test Date: 2024-08-03 Test Time: 10:05:28 Pat Name: ROSENDO ALONSO Department: ED Room: 0204T Gender: M Emergency Medicine Medical Director: SNOW : 1950 Requested By: LEIGH NDIAYE Order Number: [id number] Reading MD: Anastacio Obrien Measurements Intervals [place]ney Rate: 65 P: 57 CA: 162 QRS: -26 QRSD: 102 T: 47 QT: 420 QTc: 437 Interpretive Statements Sinus rhythm Borderline left axis deviation Minimal ST elevation, anterior leads Electronically Signed On 08-09-2024 20:18:37 PDT by Anastacio Obrien Please click the below link to view image of tracing.
[2024-08-03 19:11] LABS: Urine Blood Negative /uL (Negative); Urine Clarity Clear (Clear); Urine Color Yellow (Yellow); Urine Mucus FEW (None Seen); Urine Protein, UAD TRACE (Negative); Urine Specific Gravity 1.028 (1.001-1.035); Urine Squamous Epithelial Cell FEW /hpf (<5); Urine Urobilinogen Normal (Negative); Urine WBC 1 /HPF (0-3)
[2024-08-03 19:18] LABS: Benzodiazephine Screen, Urine Neg (NEGATIVE); Opiate Scree,Urine Neg (NEGATIVE)
[2024-08-03 19:19] LABS: Amphetamine Screen, Urine Neg (NEGATIVE); Barbiturate Scree,Urine Neg (NEGATIVE); Cannabinoid Screen, Urine Neg (NEGATIVE); Cocaine Screen, Urine Neg (NEGATIVE); Phencyclidine Screen, Urine Neg (NEGATIVE)
[2024-08-03 20:00] VITALS: PULSE 78; RESP 17; O2SAT 97
[2024-08-03] MEDS ORDERED: ONDANSETRON HCL 4 MG/2 ML VIAL IV PRN (20:15)
[2024-08-03] MEDS ORDERED: hydrALAZINE HCL 20 MG/ML VL IV PRN (20:15)
[2024-08-03] MEDS ORDERED: HYDROcodone-ACET 5/325MG TAB PO PRN (20:15)
[2024-08-03] MEDS ORDERED: ACETAMINOPHEN 325 MG TAB PO PRN (20:15)
[2024-08-03] MEDS ORDERED: DOCUSATE SOD 100 MG CAP PO PRN (20:15)
[2024-08-03] MEDS: SODIUM CHLOR 0.9% PF (SALINE LOCK) 10ML VIAL/SYR IV SCH (22:23)
[2024-08-03] MEDS: ATORVASTATIN 20 MG TAB PO SCH (22:34)
--- NOTE | 2024-08-03 22:34 | DVHHP2 ---
History of Present Illness Reason for Visit: Altered mental status History of Present Illness The patient is a 74-year-old male with past medical history of schizophrenia, hypertension, seizures, hyperlipidemia, GERD, and COPD who presented to [facility] ED for evaluation of altered level of consciousness. As reported by EMS, patient was picked up at [facility], for having altered level of consciousness for the past 3 days, lethargic, tired, and declining speech. Patient was seen and evaluated in the ED, laboratory data shows WBC 7.1, platelets 240, sodium 139, potassium 3.7, BUN 19, creatinine 0.92, glucose 134, ammonia 10. Please see medication orders section in the computer. On my assessment, patient remains altered, no diaphoresis, no shortness a breath, no nausea, no vomiting, no fever, no chills. Patient was admitted for further evaluation and medical management. Past Medical History COPD, GERD, High Lipids, HTN, Schizophrenia, Seizures Past Surgical History Pacemaker, Splenectomy, Left hip surgery Family History Reviewed, noncontributory to the management of this case. Past Social History The patient lives at home, denies smoking, alcohol or illicit drugs abuse. Review of Systems Constitutional: Yes: Weakness; No: Fever, Chills, Sweats, Malaise, Other Eyes: No: Pain, Vision change, Conjunctivae inflammation, Eyelid inflammation, Other, Redness ENT: No: Ear pain, Ear discharge, Nose pain, Nose discharge, Nose congestion, Mouth pain, Mouth swelling, Throat pain, Throat swelling, Other Respiratory: No: Cough, Dry, Shortness of breath, SOB with excertion, Wheezing, Hemoptysis, Pleuritic Pain, Sputum, Wheezing, Other Cardiovascular: No: Chest Pain, Palpitations, Orthopnea, Paroxysmal Noc. Dyspnea, Edema, Lt Headedness, Other Gastrointestinal: No: Nausea, Vomiting, Abdominal Pain, Diarrhea, Constipation, Melena, Hematochezia, Other Genitourinary: No Dysuria, No Frequency, No Incontinence, No Hematuria, No Retention, No Other Musculoskeletal: No: other, neck pain, shoulder pain, arm pain, back pain, hand pain, leg pain, foot pain Skin: No: Rash, Lesions, Jaundice, Bruising, Other Neurological: Confusion; No: Weakness, Numbness, Incoordination, Change in speech, Seizures, Other Allergies: Coded Allergies: NO KNOWN ALLERGIES (Unverified , 10/23/23) Medications Current Medications Medications Dose Ordered Sig/Kim Route Start Time Stop Time Status Last Admin Dose Admin Atorvastatin Calcium 40 mg HS PO 08/03/24 22:00 Hydralazine HCl 10 mg Q6HP PRN IV 08/03/24 20:15 Divalproex Sodium 500 mg BID PO 08/03/24 22:00 Risperidone 3 mg DAILY PO 08/04/24 10:00 Sodium Chloride 10 ml Q8HR IV 08/03/24 22:00 08/03/24 22:23 10 ML Acetaminophen/ Hydrocodone Bitart 1 tab Q4HP PRN PO 08/03/24 20:15 Ondansetron HCl 4 mg Q4HP PRN IV 08/03/24 20:15 Docusate Sodium 100 mg BIDPRN PRN PO 08/03/24 20:15 Acetaminophen 650 mg Q6HP PRN PO 08/03/24 20:15 Exam Vital Signs Vital Signs Date Time Temp Pulse Resp B/P (MAP) Pulse Ox O2 Delivery O2 Flow Rate FiO2 08/03/24 20:00 78 17 97 Nasal Cannula* 4 36 08/03/24 20:00 98.0 154/55 (88) 98.0 General Appearance: Alert, Cooperative, No acute distress, Other (Oriented x2) HEENT: Atraumatic, PERRLA, EOMI, Mucous membr. moist/pink Respiratory: Clear to auscultation, Normal air movement Cardiovascular: Regular rate, Normal S1, Normal S2, No murmurs Abdominal: Normal bowel sounds, Soft, No tenderness, No hepatospenomegaly, No masses Extremities: No clubbing, No cyanosis, No edema, Normal pulses, No tenderness/swelling Skin: No rashes, No breakdown, No significant lesion Neuro: Normal speech, Normal tone, Sensation intact, Cranial nerves 3-12 NL, Reflexes 2+, Other (Generalized weakness) Psych/Mental Status: Mental status NL, Mood NL Labs/Xrays Labs Test 08/03/24 18:24 08/03/24 10:48 Range/Units Urine Color Yellow Yellow Urine Clarity Clear Clear Urine pH 6.0 5.0-9.0 Urine Specific [place] 1.028 1.001-1.035 Urine Protein Trace H Negative Urine Ketones 1+ H Negative Urine Blood Negative Negative /uL Urine Nitrite Negative Negative Urine Bilirubin Negative Negative Urine Urobilinogen Normal Negative mg/dL Urine Leukocyte Esterase Negative Negative /uL Urine RBC 8 0 - 3 /hpf Urine Microscopic WBC 1 0-3 /HPF Urine Squamous Epithelial Cells Few <5 /hpf Urine Bacteria None seen None Seen /hpf Urine Mucus Few None Seen Urine Glucose Trace Normal mg/dL Urine Opiates Screen Neg NEGATIVE Urine Fentanyl Screen Neg NEGATIVE Urine Barbiturates Screen Neg NEGATIVE Urine Phencyclidine Screen Neg NEGATIVE Urine Amphetamines Screen Neg NEGATIVE Urine Benzodiazepines Screen Neg NEGATIVE Urine Cocaine Screen Neg NEGATIVE Urine Cannabinoids Screen Neg NEGATIVE White Blood Count 7.1 4.4-10.8 10^3/uL Red Blood Count 4.68 4.5-5.90 10^6/uL Hemoglobin 14.6 13.5-17.5 g/dL Hematocrit 43.4 41.0-53.0 % Mean Corpuscular Volume 92.7 80.0-100.0 fL Mean Corpuscular Hemoglobin 31.3 28.0-32.0 pg Mean Corpuscular Hemoglobin Concent 33.8 32.0-36.0 g/dL Red Cell Distribution Width 14.8 H 11.8-14.3 % Platelet Count 240 140-450 10^3/uL Mean Platelet Volume 9.0 6.9-10.8 fL Neutrophils (%) (Auto) 48.9 37.0-80.0 % Lymphocytes (%) (Auto) 35.4 10.0-50.0 % Monocytes (%) (Auto) 12.6 H 0.0-12.0 % Eosinophils (%) (Auto) 2.8 0.0-7.0 % Basophils (%) (Auto) 0.3 0.0-2.0 % Neutrophils # (Auto) 3.5 1.6-8.6 10 ^3/uL Lymphocytes # (Auto) 2.5 0.4-5.4 10 ^3/uL Monocytes # (Auto) 0.9 0-1.3 10 ^3/uL Eosinophils # (Auto) 0.2 0-0.8 10 ^3/uL Basophils # (Auto) 0 0-0.2 10 ^3/uL Nucleated Red Blood Cells 0.1 % Sodium Level 139 136-145 mmol/L Potassium Level 3.7 3.5-5.1 mmol/L Chloride Level 105 98-107 mmol/L Carbon Dioxide Level 28 20-31 mmol/L Anion Gap 6 5-15 Blood Urea Nitrogen 19 9-23 mg/dL Creatinine 0.92 0.700-1.30 mg/dL Glomerular Filtration Rate Calc 88 >90 mL/min BUN/Creatinine Ratio 20.7 H 10.0-20.0 Serum Glucose 134 H 74-106 mg/dL Calcium Level 9.8 8.7-10.4 mg/dL Total Bilirubin 0.3 0.2-1.0 mg/dL Aspartate Amino Transferase (AST) 25 13-40 U/L Alanine Aminotransferase (ALT) 16 7-40 U/L Alkaline Phosphatase 71 46-116 U/L Ammonia < 10 L 11-32 umol/L Total Protein 7.0 5.7-8.2 g/dL Albumin 4.3 3.2-4.8 g/dL Plasma/Serum Blood Alcohol < 3.0 <10 mg/dL PATIENT: ROSENDO ALONSO JR ACCT: [id number] UNIT: [id number] : 1950 LOC: ER ROOM / BED: / AGE / SEX: 74 / M ADM STATUS: REG ER SERVICE 1135 ORDERING PHYSICIAN: EZRA MCDANIEL MD PROCEDURE(s): HWOCT - HEAD WITHOUT CONTRAST REASON: [facility] ORDER NUMBER(s): [id number], ACCESSION NUMBER(s): [id number] CLINICAL INFORMATION: Acute loss of consciousness. TECHNIQUE: Axial imaging was obtained through the brain without contrast. Coronal and sagittal reformatted images were obtained, reviewed, and stored. Images were reviewed in brain and bone windows. All CT scans at this medical facility are performed using dose modulation techniques as appropriate to a performed exam including the following: Automated exposure control was utilized; adjustment of the MA and/or KV according to patient size; and use of iterative reconstruction technique. CTDIvol = 63.25 mGy DLP = 1244.64 mGy-cm COMPARISON: CT HEAD WITHOUT CONTRAST on DOS: 11/04/23 FINDINGS: There is no acute intracranial hemorrhage. No mass effect or midline shift. The ventricles and sulci are within normal limits in size for age. Basal cisterns are patent. The calvarium is unremarkable. Paranasal sinuses and mastoid air cells are clear. IMPRESSION: 1. No CT evidence of acute intracranial abnormality. 2. Nonacute findings as detailed above. ORDERING PHYSICIAN: EZRA MCDANIEL MD PROCEDURE(s): CXRP - CHEST PORTABLE REASON: aloc ORDER NUMBER(s): [id number], ACCESSION NUMBER(s): [id number] XY CHEST PORTABLE, HISTORY: aloc COMPARISON: XY CHEST PORTABLE on DOS: 01/24/24, XY CHEST XRAY 1 VIEW on DOS: 11/04/23 XY CHEST PORTABLE on DOS: 01/24/24, XY CHEST XRAY 1 VIEW on DOS: 11/04/23 TECHNICAL DATA: 1 view of the chest was obtained. FINDINGS: Lines and tubes: None Cardiomediastinal silhouette: normal Pulmonary vasculature: normal Lung expansion: normal Lung airspace: normal Lung interstitium: normal Pleura: normal Pneumothorax: no Bones: Unremarkable Other: no IMPRESSION: No acute intrathoracic abnormality. Assessment/Plan Assessment/Plan Altered mental status Altered mental status, unspecified Metabolic encephalopathy Generalized weakness Plan 1. Admit to telemetry unit 2. Breathing treatment 3. Pain control management 4. Management of fluids and electrolytes 5. Consultation for hospitalist 6. Diagnostic tests head CT 7. DVT prophylaxis on SCDs 8. Repeat labs CBC, CMP in a.m. 9. Continue with current medical management 10. Treatment plan discussed with patient and RN. Patient verbalized understanding. Plan discussed with: Patient, Other (RN) My Orders Orders - KEYSHA PIPER DNP Procedure Category Date Status Time Atorvastatin (Lipitor) PHA 08/03/24 In Process 22:00 Hydralazine Injection PHA 08/03/24 In Process (Apresoline Inject 20:[address] Tablet PHA 08/03/24 In Process (Depakote "Dr" Tabl 22:00 Risperidone Tablet PHA 08/04/24 In Process (Risperdal Tablet) 10:00 Allergies PANDA 08/03/24 In Process 20:05 Code Status CODE 08/03/24 Transmitted 20:05 Sodium Chloride Lock PHA 08/03/24 In Process (Saline Lock Ns) 22:00 Oxygen Per Hour RT 08/03/24 Transmitted 20:05 Hydrocodone-Acet PHA 08/03/24 In Process 5/325mg Tab ([place] 20:15 Ondansetron Hcl PHA 08/03/24 In Process (Zofran) 20:15 Docusate Sodium PHA 08/03/24 In Process Capsule (Colace 20:15 Fall Risk Precautions PANDA 08/03/[address] 20:05 Complete Blood Count LAB 08/04/24 Verified 04:00 Comprehensive LAB 08/04/24 Verified Metabolic Panel 04:00 Cardiac DIET 08/04/24 Transmitted Diet-2gna,Lofat,Lochol Breakfast Condition: Serious PANDA 08/03/24 In Process 20:05 Acetaminophen Tablet PHA 08/03/24 In Process (Tylenol Tablet) 20:15 Bedrest With Bathroom PANDA 08/03/24 In Process Privileg 20:05 Sequential PANDA 08/03/24 In Process Compression Device Problem List: (1) Altered mental status (2) Generalized weakness (3) Metabolic encephalopathy (4) Altered mental status, unspecified Date of Service: August 03, 2024 Billing Provider: KEYSHA PIPER DNP Common Visit Codes: [id number] INP/OBS CARE (HIGH) KEYSHA PIPER DNP August 03, 2024 22:34
[2024-08-03] MEDS ORDERED: NITROGLYCERIN 0.4 MG SL TAB SL PRN (22:45)
[2024-08-03] MEDS ORDERED: MORPHINE SULFATE INJ 2 MG/ml SYRG IV PRN (22:45)
[2024-08-04] MEDS ORDERED: MELATONIN 5 MG TAB PO ONE (03:00)
[2024-08-04] MEDS ORDERED: PROP1TAB51 PO (03:56)
[2024-08-04] MEDS ORDERED: TRAZ-227 PO (03:56)
[2024-08-04] MEDS ORDERED: DIVA1TAB59 PO (03:56)
[2024-08-04] MEDS ORDERED: QUET1TAB11 PO (03:56)
[2024-08-04] MEDS ORDERED: QUET50TA27 PO (03:56)
[2024-08-04] MEDS ORDERED: DOCU-265 PO (03:56)
[2024-08-04] MEDS: risperiDONE 1 MG TAB PO SCH (09:10)
[2024-08-04 09:42] LABS: Basophils # (auto) 0 10 ^3/uL (0-0.2); Basophils % (auto) 0.3 % (0.0-2.0); Eosinophils # (auto) 0.1 10 ^3/uL (0-0.8); Eosinophils % (auto) 1.8 % (0.0-7.0); Hematocrit 44.8 % (41.0-53.0); Hemoglobin 15.1 g/dL (13.5-17.5); Lymphocytes # (auto) 2.2 10 ^3/uL (0.4-5.4); Lymphocytes % (auto) 28.2 % (10.0-50.0); Mean Corpuscular Hemoglobin 31.4 pg (28.0-32.0); Mean Corpuscular Hgb Conc. 33.8 g/dL (32.0-36.0); Monocytes # (auto) 0.8 10 ^3/uL (0-1.3); Monocytes % (auto) 10.8 % (0.0-12.0); Neutrophils # (auto) 4.6 10 ^3/uL (1.6-8.6); Neutrophils % (auto) 58.9 % (37.0-80.0); Platelet Count (auto) 252 10^3/uL (140-450); Red Blood Cells 4.81 10^6/uL (4.5-5.90); Red Cell Distribution Width 14.8 % (11.8-14.3); White Blood Cell 7.7 10^3/uL (4.4-10.8)
[2024-08-04 10:02] LABS: Alanine Aminotransferase 18 U/L (7-40); Alkaline Phosphatase 71 U/L (46-116); Anion Gap 6 (5-15); Aspartate Aminotransferase 26 U/L (13-40); BUN/Creatinine Ratio 18.9 (10.0-20.0); Blood Urea Nitrogen 18 mg/dL (9-23); Calcium 9.8 mg/dL (8.7-10.4); Carbon Dioxide 28 mmol/L (20-31); Chloride 105 mmol/L (98-107); Potassium 3.8 mmol/L (3.5-5.1); Sodium 139 mmol/L (136-145); Total Protein 6.6 g/dL (5.7-8.2)
[2024-08-04 10:04] LABS: Bilirubin, Total 0.3 mg/dL (0.2-1.0); Glucose 133 mg/dL (74-106)
[2024-08-04] MEDS: HALOPERIDOL LACTATE 5 MG/ML INJ VIAL IM ONE ×2 (10:37→17:08)
--- NOTE | 2024-08-04 12:33 | DVHPN2 ---
Reviewed: Care Plan, H&P, Labs, Medications, Previous Orders, Radiology Changes from previous H/P or p: No Changes General: Per HPI Eyes: No Pain, No Vision change, No Conjunctivae inflammation, No Eyelid inflammation, No Other, No Redness ENT: No Ear pain, No Ear discharge, No Nose pain, No Nose discharge, No Nose congestion, No Mouth pain, No Mouth swelling, No Throat pain, No Throat swelling, No Other Cardiovascular: No Chest Pain, No Palpitations, No Orthopnea, No Paroxysmal Noc. Dyspnea, No Edema, No Lt Headedness, No Other Respiratory: No Cough, No Dry, No Shortness of breath, No SOB with excertion, No Wheezing, No Hemoptysis, No Pleuritic Pain, No Sputum, No Other Gastrointestinal: No Nausea, No Vomiting, No Abdominal Pain, No Diarrhea, No Constipation, No Melena, No Hematochezia, No Other Genitourinary: No Dysuria, No Frequency, No Incontinence, No Hematuria, No Retention, No Other Musculoskeletal: No other, No neck pain, No shoulder pain, No arm pain, No back pain, No hand pain, No leg pain, No foot pain Skin: No Rash, No Lesions, No Jaundice, No Bruising, No Other Objective Vitals Vital Signs Date Time Temp Pulse Resp B/P (MAP) Pulse Ox O2 Delivery O2 Flow Rate FiO2 08/04/24 07:45 Room Air* 0 21 08/04/24 00:00 62 08/03/24 23:00 24 123/51 (75) 96 08/03/24 20:00 98.0 98.0 Intake/Output Intake and Output 08/04/24 07:00 Intake Total 300 ml Output Total 700 ml Balance -400 ml Intake Oral 300 ml Output Urine Total 700 ml Medications Current Medications Medications Dose Ordered Sig/Kim Route Start Time Stop Time Status Last Admin Dose Admin Atorvastatin Calcium 40 mg HS PO 08/03/24 22:00 08/03/24 22:34 40 MG Hydralazine HCl 10 mg Q6HP PRN IV 08/03/24 20:15 Divalproex Sodium 500 mg BID PO 08/03/24 22:00 08/04/24 09:10 500 MG Risperidone 3 mg DAILY PO 08/04/24 10:00 08/04/24 09:10 3 MG Sodium Chloride 10 ml Q8HR IV 08/03/24 22:00 08/04/24 05:52 10 ML Acetaminophen/ Hydrocodone Bitart 1 tab Q4HP PRN PO 08/03/24 20:15 Ondansetron HCl 4 mg Q4HP PRN IV 08/03/24 20:15 Docusate Sodium 100 mg BIDPRN PRN PO 08/03/24 20:15 Acetaminophen 650 mg Q6HP PRN PO 08/03/24 20:15 Nitroglycerin 0.4 mg Q5MINP PRN SL 08/03/24 22:45 Morphine Sulfate 2 mg Q30M PRN IV 08/03/24 22:45 Laboratory Results Laboratory Tests 08/04/24 09:25 Chemistry Test 08/04/24 09:25 Albumin 4.0 g/dL (3.2-4.8) Calcium Level 9.8 mg/dL (8.7-10.4) Total Protein 6.6 g/dL (5.7-8.2) LFT Test 08/04/24 09:25 Alanine Aminotransferase (ALT) 18 U/L (7-40) Alkaline Phosphatase 71 U/L (46-116) Aspartate Amino Transferase (AST) 26 U/L (13-40) Total Bilirubin 0.3 mg/dL (0.2-1.0) Urinalysis Test 08/03/24 18:24 Urine Color Yellow (Yellow) Urine Clarity Clear (Clear) Urine pH 6.0 (5.0-9.0) Urine Specific [place] 1.028 (1.001-1.035) Urine Protein Trace (Negative) H Urine Ketones 1+ (Negative) H Urine Blood Negative /uL (Negative) Urine Nitrite Negative (Negative) Urine Bilirubin Negative (Negative) Urine Urobilinogen Normal mg/dL (Negative) Urine Leukocyte Esterase Negative /uL (Negative) Urine RBC 8 /hpf (0 - 3) Urine Microscopic WBC 1 /HPF (0-3) Urine Squamous Epithelial Cells Few /hpf (<5) Urine Bacteria None seen /hpf (None Seen) Urine Mucus Few (None Seen) Urine Glucose Trace mg/dL (Normal) Labs and/or images reviewed: Labs reviewed by me, Image(s) reviewed by me Assessment/Plan Assessment/Plan Acute Metabolic encephalopathy Psychosis with agitation: Tele psych consult Haljayden p.r.n. COPD GERD Hypertension Hypercholesterolemia: Lipitor Schizophrenia : Risperdal History of seizures Depakote History of pacemaker History of splenectomy History of left hip surgery CT head negative All labs normal Time Spent 70 minutes Patient is full code Advanced care planning time 20 minutes Patient [facility]ame from [facility] Plan discussed with: Patient Date of Service: August 04, 2024 Billing Provider: BETHANY EMERY MD Common Visit Codes: [id number] CARE 30-74 MIN BETHANY EMERY MD August 04, 2024 12:33
[2024-08-04] MEDS: HALOPERIDOL LACTATE 5 MG/ML INJ VIAL IM PRN (13:46)
[2024-08-04] MEDS: NICOTINE 21MG/24 HR TOPICAL PATCH TD SCH (17:09)
[2024-08-04 21:00] VITALS: BP 146/74; PULSE 90; RESP 16; TEMP 98.3; O2SAT 90
[2024-08-05 01:00] VITALS: TEMP 97.8
[2024-08-05] MEDS: HALOPERIDOL 5 MG TAB PO ONE (01:53)
[2024-08-05] MEDS: diphenhdrAMINE HCL 25 MG CAP PO ONE (01:53)
--- NOTE | 2024-08-05 08:50 | DVHPN2 ---
Reviewed: Care Plan, H&P, Labs, Medications, Previous Orders, Radiology Changes from previous H/P or p: No Changes General: Per HPI Eyes: No Pain, No Vision change, No Conjunctivae inflammation, No Eyelid inflammation, No Other, No Redness ENT: No Ear pain, No Ear discharge, No Nose pain, No Nose discharge, No Nose congestion, No Mouth pain, No Mouth swelling, No Throat pain, No Throat swelling, No Other Cardiovascular: No Chest Pain, No Palpitations, No Orthopnea, No Paroxysmal Noc. Dyspnea, No Edema, No Lt Headedness, No Other Respiratory: No Cough, No Dry, No Shortness of breath, No SOB with excertion, No Wheezing, No Hemoptysis, No Pleuritic Pain, No Sputum, No Other Gastrointestinal: No Nausea, No Vomiting, No Abdominal Pain, No Diarrhea, No Constipation, No Melena, No Hematochezia, No Other Genitourinary: No Dysuria, No Frequency, No Incontinence, No Hematuria, No Retention, No Other Musculoskeletal: No other, No neck pain, No shoulder pain, No arm pain, No back pain, No hand pain, No leg pain, No foot pain Skin: No Rash, No Lesions, No Jaundice, No Bruising, No Other Objective Vitals Vital Signs Date Time Temp Pulse Resp B/P (MAP) Pulse Ox O2 Delivery O2 Flow Rate FiO2 08/05/24 01:00 97.8 97.8 08/04/24 21:00 90 16 146/74 (98) 90 08/04/24 20:00 Room Air* 0 21 Intake/Output Intake and Output 08/05/24 07:00 Intake Total 340 ml Balance 340 ml Intake Oral 340 ml # Voids 2 Medications Current Medications Medications Dose Ordered Sig/Kim Route Start Time Stop Time Status Last Admin Dose Admin Atorvastatin Calcium 40 mg HS PO 08/03/24 22:00 08/04/24 23:12 40 MG Hydralazine HCl 10 mg Q6HP PRN IV 08/03/24 20:15 Divalproex Sodium 500 mg BID PO 08/03/24 22:00 08/04/24 23:12 500 MG Risperidone 3 mg DAILY PO 08/04/24 10:00 08/04/24 09:10 3 MG Sodium Chloride 10 ml Q8HR IV 08/03/24 22:00 08/05/24 06:00 10 ML Acetaminophen/ Hydrocodone Bitart 1 tab Q4HP PRN PO 08/03/24 20:15 Ondansetron HCl 4 mg Q4HP PRN IV 08/03/24 20:15 Docusate Sodium 100 mg BIDPRN PRN PO 08/03/24 20:15 Acetaminophen 650 mg Q6HP PRN PO 08/03/24 20:15 Nitroglycerin 0.4 mg Q5MINP PRN SL 08/03/24 22:45 Morphine Sulfate 2 mg Q30M PRN IV 08/03/24 22:45 Haloperidol Lactate 2.5 mg Q8HP PRN IM 08/04/24 12:45 08/04/24 13:46 2.5 MG Nicotine 1 patch DAILY TD 08/04/24 15:15 08/04/24 17:09 1 PATCH Laboratory Results Laboratory Tests 08/04/24 09:25 Chemistry Test 08/04/24 09:25 Albumin 4.0 g/dL (3.2-4.8) Calcium Level 9.8 mg/dL (8.7-10.4) Total Protein 6.6 g/dL (5.7-8.2) LFT Test 08/04/24 09:25 Alanine Aminotransferase (ALT) 18 U/L (7-40) Alkaline Phosphatase 71 U/L (46-116) Aspartate Amino Transferase (AST) 26 U/L (13-40) Total Bilirubin 0.3 mg/dL (0.2-1.0) Urinalysis Test 08/03/24 18:24 Urine Color Yellow (Yellow) Urine Clarity Clear (Clear) Urine pH 6.0 (5.0-9.0) Urine Specific [place] 1.028 (1.001-1.035) Urine Protein Trace (Negative) H Urine Ketones 1+ (Negative) H Urine Blood Negative /uL (Negative) Urine Nitrite Negative (Negative) Urine Bilirubin Negative (Negative) Urine Urobilinogen Normal mg/dL (Negative) Urine Leukocyte Esterase Negative /uL (Negative) Urine RBC 8 /hpf (0 - 3) Urine Microscopic WBC 1 /HPF (0-3) Urine Squamous Epithelial Cells Few /hpf (<5) Urine Bacteria None seen /hpf (None Seen) Urine Mucus Few (None Seen) Urine Glucose Trace mg/dL (Normal) Labs and/or images reviewed: Labs reviewed by me, Image(s) reviewed by me Assessment/Plan Assessment/Plan Acute Metabolic encephalopathy Psychosis with agitation: Tele psych consult pending, continue Haldol p.r.n. COPD GERD Hypertension Hypercholesterolemia: Lipitor Schizophrenia : Risperdal History of seizures Depakote History of pacemaker History of splenectomy History of left hip surgery CT head negative All labs normal Time Spent 50 minutes Patient is full code Advanced care planning time 20 minutes [facility] Patient continues to be agitated and yelling at nursing staff and trying to get out of the room, tele psych consult pending Plan discussed with: Patient My Orders Orders - BETHANY EMERY MD Procedure Category Date Status Time *Tele Psych Consult CONS 08/04/24 Transmitted 12:41 Communication Order ORDERS 08/04/24 Transmitted 12:41 Haloperidol Lactate PHA 08/04/24 In Process Injection (Haldol) 12:45 Nicotine 21mg/24hr PHA 08/04/24 In Process (Nicoderm 21mg/24hr) 15:15 Cardiac DIET 08/05/24 Transmitted Diet-2gna,Lofat,Lochol Breakfast Date of Service: August 05, 2024 Billing Provider: BETHANY EMERY MD Common Visit Codes: [id number] INP/OBS CARE(HIGH) BETHANY EMERY MD August 05, 2024 08:50
[2024-08-05] MEDS: HALOPERIDOL LACTATE 5 MG/ML INJ VIAL IM PRN ×2 (09:26→11:02)
[2024-08-05 09:30] VITALS: BP 147/89; PULSE 95; RESP 18; TEMP 98; O2SAT 94
--- NOTE | 2024-08-05 10:52 | DVHINCON2 ---
Date of Service if different f: August 05, 2024 Consultation ([facility]) Progress: Declining Labs Laboratory Tests Test 08/03/24 10:48 08/03/24 18:24 08/04/24 09:25 Ammonia < 10 umol/L (11-32) Plasma/Serum Blood Alcohol < 3.0 mg/dL (<10) Urine Color Yellow (Yellow) Urine Clarity Clear (Clear) Urine pH 6.0 (5.0-9.0) Urine Specific [place] 1.028 (1.001-1.035) Urine Protein Trace (Negative) Urine Ketones 1+ (Negative) Urine Blood Negative /uL (Negative) Urine Nitrite Negative (Negative) Urine Bilirubin Negative (Negative) Urine Urobilinogen Normal mg/dL (Negative) Urine Leukocyte Esterase Negative /uL (Negative) Urine RBC 8 /hpf (0 - 3) Urine Microscopic WBC 1 /HPF (0-3) Urine Squamous Epithelial Cells Few /hpf (<5) Urine Bacteria None seen /hpf (None Seen) Urine Mucus Few (None Seen) Urine Glucose Trace mg/dL (Normal) Urine Opiates Screen Neg (NEGATIVE) Urine Fentanyl Screen Neg (NEGATIVE) Urine Barbiturates Screen Neg (NEGATIVE) Urine Phencyclidine Screen Neg (NEGATIVE) Urine Amphetamines Screen Neg (NEGATIVE) Urine Benzodiazepines Screen Neg (NEGATIVE) Urine Cocaine Screen Neg (NEGATIVE) Urine Cannabinoids Screen Neg (NEGATIVE) White Blood Count 7.7 10^3/uL (4.4-10.8) Red Blood Count 4.81 10^6/uL (4.5-5.90) Hemoglobin 15.1 g/dL (13.5-17.5) Hematocrit 44.8 % (41.0-53.0) Mean Corpuscular Volume 93.0 fL (80.0-100.0) Mean Corpuscular Hemoglobin 31.4 pg (28.0-32.0) Mean Corpuscular Hemoglobin Concent 33.8 g/dL (32.0-36.0) Red Cell Distribution Width 14.8 % (11.8-14.3) Platelet Count 252 10^3/uL (140-450) Mean Platelet Volume 9.2 fL (6.9-10.8) Neutrophils (%) (Auto) 58.9 % (37.0-80.0) Lymphocytes (%) (Auto) 28.2 % (10.0-50.0) Monocytes (%) (Auto) 10.8 % (0.0-12.0) Eosinophils (%) (Auto) 1.8 % (0.0-7.0) Basophils (%) (Auto) 0.3 % (0.0-2.0) Neutrophils # (Auto) 4.6 10 ^3/uL (1.6-8.6) Lymphocytes # (Auto) 2.2 10 ^3/uL (0.4-5.4) Monocytes # (Auto) 0.8 10 ^3/uL (0-1.3) Eosinophils # (Auto) 0.1 10 ^3/uL (0-0.8) Basophils # (Auto) 0 10 ^3/uL (0-0.2) Nucleated Red Blood Cells 0.0 % Sodium Level 139 mmol/L (136-145) Potassium Level 3.8 mmol/L (3.5-5.1) Chloride Level 105 mmol/L (98-107) Carbon Dioxide Level 28 mmol/L (20-31) Anion Gap 6 (5-15) Blood Urea Nitrogen 18 mg/dL (9-23) Creatinine 0.95 mg/dL (0.700-1.30) Glomerular Filtration Rate Calc 85 mL/min (>90) BUN/Creatinine Ratio 18.9 (10.0-20.0) Serum Glucose 133 mg/dL (74-106) Calcium Level 9.8 mg/dL (8.7-10.4) Total Bilirubin 0.3 mg/dL (0.2-1.0) Aspartate Amino Transf (AST/SGOT) 26 U/L (13-40) Alanine Aminotransferase (ALT/SGPT) 18 U/L (7-40) Alkaline Phosphatase 71 U/L (46-116) Total Protein 6.6 g/dL (5.7-8.2) Albumin 4.0 g/dL (3.2-4.8) Side effects of medications: No Appearance: Younger than stated age Psychomotor activity: Agitated Behavioral: Hostile, Aggressive, Uncooperative Eye contact: Limited Speech: Pressured Affect: Irritable Mood: Elevated Thought processes: Disorganized Suicidal ideations: Absent Homicidal ideations: Absent Orientation: Person Intellect: Average Concentration: Poor Attention: Poor Judgement: Poor Insight: Poor Vitals Vital Signs Date Time Temp Pulse Resp B/P (MAP) Pulse Ox O2 Delivery O2 Flow Rate FiO2 08/05/24 09:30 98.0 95 18 147/89 (108) 94 98.0 08/04/24 20:00 Room Air* 0 21 Current medications Current Medications Medications Dose Ordered Sig/Kim Route Start Time Stop Time Status Last Admin Dose Admin Atorvastatin Calcium 40 mg HS PO 08/03/24 22:00 08/04/24 23:12 40 MG Hydralazine HCl 10 mg Q6HP PRN IV 08/03/24 20:15 Divalproex Sodium 500 mg BID PO 08/03/24 22:00 08/05/24 09:02 500 MG Risperidone 3 mg DAILY PO 08/04/24 10:00 08/05/24 09:02 3 MG Sodium Chloride 10 ml Q8HR IV 08/03/24 22:00 08/05/24 06:00 10 ML Acetaminophen/ Hydrocodone Bitart 1 tab Q4HP PRN PO 08/03/24 20:15 Ondansetron HCl 4 mg Q4HP PRN IV 08/03/24 20:15 Docusate Sodium 100 mg BIDPRN PRN PO 08/03/24 20:15 Acetaminophen 650 mg Q6HP PRN PO 08/03/24 20:15 Nitroglycerin 0.4 mg Q5MINP PRN SL 08/03/24 22:45 Morphine Sulfate 2 mg Q30M PRN IV 08/03/24 22:45 Nicotine 1 patch DAILY TD 08/04/24 15:15 08/05/24 09:02 1 PATCH Haloperidol Lactate 5 mg Q8HP PRN IM 08/05/24 09:30 08/05/24 09:26 5 MG Treatment plan discussed: With staff Medication adjusted: Yes Labs ordered: No Psychotherapy provided: No Type: Voluntary Diagnosis: Bipolar Disorder Schizophrenia Plan : A suggestion to give the pt Zyprexa 15 mg was given, Dr. Alicia was called, he agreed. Nurse Ty called back saying hospital does not carry zyprexa IM. So it was suggested that haldol 10 mg + benadryl 50 mg be administered IM. And if that failed, Versed drip should be considered. Pt to be placed on a 5150 and transferred to inpatient psychiatry as the pt has been deemed medically stable. History of Present Illness Reason for Consult : Altered mental status. HPI : Pt lives in a SNF and was transferred to the hospital for AMS. The medical team has thoroughly worked up the pt and not found any metabolic of infection related etiology for the pt's presentation. The pt is yelling at staff, irritable, mouthing obscenities, does not stay in his room and walks around on the unit appearing to want to hit someone. Does not engage in conversation other than to yell at anyone who tries to talk. The pt has a past diagnosis of Bipolar disorder and possibly schizophrenia. Pt is supposed to be on Risperdal 3 mg BID and depakote 500 mg BID which he seems to have been adherent with at the last location and this hospital. But these don't seem to be helping. A little before this consult was attempted, the pt had received an IM injection of Haldol 5 mg without any benefit. When the interview was attempted the pt was yelling at staff members in the middle of the unit the pt was not redirectable, kept roving the hallway, yelling obscenities and although the nurse attempted to follow and redirect the pt to his room to attempt a conversation, the pt was not able to be engaged at all. A suggestion to give the pt Zyprexa 15 mg was given, Dr. Alicia was called, he agreed. Nurse Ty called back saying hospital does not carry zyprexa IM. So it was suggested that haldol 10 mg + benadryl 50 mg be administered IM. And if that failed, Versed drip should be considered. Past Psychiatric History : Bipolar disorder/Schizophrenia Past Medical History : Reviewed, as denoted in medical providers notes. Social History : Assessment/Diagnosis/Plan Reviewed: Consults, Care Plan, Labs, Medications, Previous Orders, Radiology NILESH REDD MD August 05, 2024 10:52
[2024-08-05] MEDS: diphenhdrAMINE HCL 50 MG/1 ML VL IM PRN ×2 (11:09→22:14)
[2024-08-05] MEDS ORDERED: HALOPERIDOL LACTATE 5 MG/ML INJ VIAL IM ONE (14:00)
[2024-08-05 21:42] VITALS: BP 118/94; PULSE 93; RESP 20; TEMP 97.7; O2SAT 96
--- NOTE | 2024-08-06 09:32 | DVHPN2 ---
Reviewed: Care Plan, H&P, Labs, Medications, Previous Orders, Radiology Changes from previous H/P or p: No Changes General: Per HPI Eyes: No Pain, No Vision change, No Conjunctivae inflammation, No Eyelid inflammation, No Other, No Redness ENT: No Ear pain, No Ear discharge, No Nose pain, No Nose discharge, No Nose congestion, No Mouth pain, No Mouth swelling, No Throat pain, No Throat swelling, No Other Cardiovascular: No Chest Pain, No Palpitations, No Orthopnea, No Paroxysmal Noc. Dyspnea, No Edema, No Lt Headedness, No Other Respiratory: No Cough, No Dry, No Shortness of breath, No SOB with excertion, No Wheezing, No Hemoptysis, No Pleuritic Pain, No Sputum, No Other Gastrointestinal: No Nausea, No Vomiting, No Abdominal Pain, No Diarrhea, No Constipation, No Melena, No Hematochezia, No Other Genitourinary: No Dysuria, No Frequency, No Incontinence, No Hematuria, No Retention, No Other Musculoskeletal: No other, No neck pain, No shoulder pain, No arm pain, No back pain, No hand pain, No leg pain, No foot pain Skin: No Rash, No Lesions, No Jaundice, No Bruising, No Other Objective Vitals Vital Signs Date Time Temp Pulse Resp B/P (MAP) Pulse Ox O2 Delivery O2 Flow Rate FiO2 08/05/24 21:42 97.7 93 20 118/94 (102) 96 97.7 08/05/24 20:00 Room Air* 0 21 Intake/Output Intake and Output 08/06/24 07:00 Intake Total 1190 ml Balance 1190 ml Intake Oral 1190 ml # Voids 6 # Bowel Movements 1 Medications Current Medications Medications Dose Ordered Sig/Kim Route Start Time Stop Time Status Last Admin Dose Admin Atorvastatin Calcium 40 mg HS PO 08/03/24 22:00 08/05/24 22:12 40 MG Hydralazine HCl 10 mg Q6HP PRN IV 08/03/24 20:15 Divalproex Sodium 500 mg BID PO 08/03/24 22:00 08/05/24 22:11 500 MG Risperidone 3 mg DAILY PO 08/04/24 10:00 08/05/24 09:02 3 MG Sodium Chloride 10 ml Q8HR IV 08/03/24 22:00 08/05/24 22:12 10 ML Acetaminophen/ Hydrocodone Bitart 1 tab Q4HP PRN PO 08/03/24 20:15 Ondansetron HCl 4 mg Q4HP PRN IV 08/03/24 20:15 Docusate Sodium 100 mg BIDPRN PRN PO 08/03/24 20:15 Acetaminophen 650 mg Q6HP PRN PO 08/03/24 20:15 Nitroglycerin 0.4 mg Q5MINP PRN SL 08/03/24 22:45 Morphine Sulfate 2 mg Q30M PRN IV 08/03/24 22:45 Nicotine 1 patch DAILY TD 08/04/24 15:15 08/05/24 09:02 1 PATCH Haloperidol Lactate 10 mg Q12HP PRN IM 08/05/24 11:15 08/05/24 22:15 10 MG Diphenhydramine HCl 50 mg Q12HP PRN IM 08/05/24 23:00 08/05/24 22:14 50 MG Laboratory Results Laboratory Tests 08/04/24 09:25 Urinalysis Test 08/03/24 18:24 Urine Color Yellow (Yellow) Urine Clarity Clear (Clear) Urine pH 6.0 (5.0-9.0) Urine Specific [place] 1.028 (1.001-1.035) Urine Protein Trace (Negative) H Urine Ketones 1+ (Negative) H Urine Blood Negative /uL (Negative) Urine Nitrite Negative (Negative) Urine Bilirubin Negative (Negative) Urine Urobilinogen Normal mg/dL (Negative) Urine Leukocyte Esterase Negative /uL (Negative) Urine RBC 8 /hpf (0 - 3) Urine Microscopic WBC 1 /HPF (0-3) Urine Squamous Epithelial Cells Few /hpf (<5) Urine Bacteria None seen /hpf (None Seen) Urine Mucus Few (None Seen) Urine Glucose Trace mg/dL (Normal) Labs and/or images reviewed: Labs reviewed by me, Image(s) reviewed by me Assessment/Plan Assessment/Plan Acute Metabolic encephalopathy Psychosis with agitation: Tele psych consult by Dr. Pierre treated advised 0 and transfer to inpatient psych facility, placed on Haldol 10 mg intramuscular with Benadryl 50 mg intramuscular p.r.n. COPD GERD Hypertension Hypercholesterolemia: Lipitor Schizophrenia : Risperdal History of seizures Depakote History of pacemaker History of splenectomy History of left hip surgery CT head negative Patient we will be placed on 5150 and transfer to inpatient psych facility Medically stable for transfer to inpatient psych facility Plan discussed with: Patient My Orders Orders - BETHANY EMERY MD Procedure Category Date Status Time Haloperidol Lactate PHA 08/05/24 In Process Injection (Haldol) 11:15 Diphenhdramine PHA 08/05/24 In Process Injection (Benadryl 23:00 Date of Service: August 06, 2024 Billing Provider: BETHANY EMERY MD Common Visit Codes: [id number] INP/OBS CARE(HIGH) BETHANY EMERY MD August 06, 2024 09:32
--- NOTE | 2024-08-06 09:38 | DVHDS2 ---
Discharge Summary Date of Admission August 03, 2024 at 22:32 Date of Discharge: August 06, 2024 Admitting Diagnosis Agitation and confusion Wounds: None Labs/Diagnostic Data: Laboratory Results Test 08/04/24 09:25 08/03/24 18:24 08/03/24 10:48 White Blood Count 7.7 10^3/uL (4.4-10.8) Red Blood Count 4.81 10^6/uL (4.5-5.90) Hemoglobin 15.1 g/dL (13.5-17.5) Hematocrit 44.8 % (41.0-53.0) Mean Corpuscular Volume 93.0 fL (80.0-100.0) Mean Corpuscular Hemoglobin 31.4 pg (28.0-32.0) Mean Corpuscular Hemoglobin Concent 33.8 g/dL (32.0-36.0) Red Cell Distribution Width 14.8 % (11.8-14.3) Platelet Count 252 10^3/uL (140-450) Mean Platelet Volume 9.2 fL (6.9-10.8) Neutrophils (%) (Auto) 58.9 % (37.0-80.0) Lymphocytes (%) (Auto) 28.2 % (10.0-50.0) Monocytes (%) (Auto) 10.8 % (0.0-12.0) Eosinophils (%) (Auto) 1.8 % (0.0-7.0) Basophils (%) (Auto) 0.3 % (0.0-2.0) Neutrophils # (Auto) 4.6 10 ^3/uL (1.6-8.6) Lymphocytes # (Auto) 2.2 10 ^3/uL (0.4-5.4) Monocytes # (Auto) 0.8 10 ^3/uL (0-1.3) Eosinophils # (Auto) 0.1 10 ^3/uL (0-0.8) Basophils # (Auto) 0 10 ^3/uL (0-0.2) Nucleated Red Blood Cells 0.0 % Sodium Level 139 mmol/L (136-145) Potassium Level 3.8 mmol/L (3.5-5.1) Chloride Level 105 mmol/L (98-107) Carbon Dioxide Level 28 mmol/L (20-31) Anion Gap 6 (5-15) Blood Urea Nitrogen 18 mg/dL (9-23) Creatinine 0.95 mg/dL (0.700-1.30) Glomerular Filtration Rate Calc 85 mL/min (>90) BUN/Creatinine Ratio 18.9 (10.0-20.0) Serum Glucose 133 mg/dL (74-106) Calcium Level 9.8 mg/dL (8.7-10.4) Total Bilirubin 0.3 mg/dL (0.2-1.0) Aspartate Amino Transferase (AST) 26 U/L (13-40) Alanine Aminotransferase (ALT) 18 U/L (7-40) Alkaline Phosphatase 71 U/L (46-116) Total Protein 6.6 g/dL (5.7-8.2) Albumin 4.0 g/dL (3.2-4.8) Urine Color Yellow (Yellow) Urine Clarity Clear (Clear) Urine pH 6.0 (5.0-9.0) Urine Specific [place] 1.028 (1.001-1.035) Urine Protein Trace (Negative) Urine Ketones 1+ (Negative) Urine Blood Negative /uL (Negative) Urine Nitrite Negative (Negative) Urine Bilirubin Negative (Negative) Urine Urobilinogen Normal mg/dL (Negative) Urine Leukocyte Esterase Negative /uL (Negative) Urine RBC 8 /hpf (0 - 3) Urine Microscopic WBC 1 /HPF (0-3) Urine Squamous Epithelial Cells Few /hpf (<5) Urine Bacteria None seen /hpf (None Seen) Urine Mucus Few (None Seen) Urine Glucose Trace mg/dL (Normal) Urine Opiates Screen Neg (NEGATIVE) Urine Fentanyl Screen Neg (NEGATIVE) Urine Barbiturates Screen Neg (NEGATIVE) Urine Phencyclidine Screen Neg (NEGATIVE) Urine Amphetamines Screen Neg (NEGATIVE) Urine Benzodiazepines Screen Neg (NEGATIVE) Urine Cocaine Screen Neg (NEGATIVE) Urine Cannabinoids Screen Neg (NEGATIVE) Ammonia < 10 umol/L (11-32) Plasma/Serum Blood Alcohol < 3.0 mg/dL (<10) Other Laboratory Tests 08/04/24 09:25 Brief Hx & Hospital Course: 74-year-old male with a history of bipolar schizophrenia seizures COPD hypertension hypercholesterolemia GERD history of splenectomy history of pacemaker history of left hip surgery came into ER for altered mental status confusion and agitation. Patient was found to be in psychosis. Patient had consultation with the tele psychiatric who recommended 5150 hold and transfer to inpatient psych facility. He ordered Haldol 10 mg intramuscular with a Benadryl 50 mg intramuscular p.r.n. for agitation and confusion. At the time of transfer patient is sleeping and vitals are stable. Medically cleared being transferred to inpatient psych facility Consults/Reason for consult Tele psychiatrist Dr. Tellez Operations or Procedures CT head Condition at Discharge: Fair Final Diagnosis/Problems List Acute Metabolic encephalopathy Psychosis with agitation: Tele psych consult by Dr. Pierre treated advised 5150 and transfer to inpatient psych facility, placed on Haldol 10 mg intramuscular with Benadryl 50 mg intramuscular p.r.n. COPD GERD Hypertension Hypercholesterolemia: Lipitor Bipolar Schizophrenia : Risperdal History of seizures Depakote History of pacemaker History of splenectomy History of left hip surgery CT head negative Patient we will be placed on 5150 and transfer to inpatient psych facility Medically stable for transfer to inpatient psych facility Discharge Disposition: Acute Care Facility Discharge Instruct/Medications Diet: Regular Activity: Bed rest Follow Up/Referral: Per receiving facility Medications: see list 35 (Time taken for discharge summary 35 minutes) Discharge Statement: "Patient was advised to return to the ER or call 911 if any headaches, dizziness, shortness of breath, chest pain, abdominal pain, bleeding, fevers, or worsening of medical condition. Patient was counseled about treatment plan, medications, possible side effects, patientverbalized understanding. All questions were answered to the best of my ability. This discharge took greater then 30 minutes in planning, reviewing documentation, counseling the patient, and discussing with other team members." ASSESSMENT ASSESSMENT Hospital Course Minimal improvement Assessment Acute Metabolic encephalopathy Psychosis with agitation: Tele psych consult by Dr. Pierre treated advised 5150 and transfer to inpatient psych facility, placed on Haldol 10 mg intramuscular with Benadryl 50 mg intramuscular p.r.n. COPD GERD Hypertension Hypercholesterolemia: Lipitor Bipolar Schizophrenia : Risperdal History of seizures Depakote History of pacemaker History of splenectomy History of left hip surgery CT head negative Patient we will be placed on 5150 and transfer to inpatient psych facility Medically stable for transfer to inpatient psych facility Date of Service: August 06, 2024 Billing Provider: BETHANY EMERY MD Common Visit Codes: [id number] DISCH DAY >30min BETHANY EMERY MD August 06, 2024 09:38
[2024-08-06] MEDS: LORazepam 2MG/ML-1ML VIAL IV PRN (11:46)
[2024-08-06 12:43] LABS: COVID19 ANTIGEN SOFIA FIA NEGATIVE (NEGATIVE)
[2024-08-07] MEDS: LORazepam 2MG/ML-1ML VIAL IM PRN (06:27)
--- NOTE | 2024-08-07 07:42 | DVHPN2 ---
Reviewed: Care Plan, H&P, Labs, Medications, Previous Orders, Radiology Changes from previous H/P or p: No Changes General: Per HPI Eyes: No Pain, No Vision change, No Conjunctivae inflammation, No Eyelid inflammation, No Other, No Redness ENT: No Ear pain, No Ear discharge, No Nose pain, No Nose discharge, No Nose congestion, No Mouth pain, No Mouth swelling, No Throat pain, No Throat swelling, No Other Cardiovascular: No Chest Pain, No Palpitations, No Orthopnea, No Paroxysmal Noc. Dyspnea, No Edema, No Lt Headedness, No Other Respiratory: No Cough, No Dry, No Shortness of breath, No SOB with excertion, No Wheezing, No Hemoptysis, No Pleuritic Pain, No Sputum, No Other Gastrointestinal: No Nausea, No Vomiting, No Abdominal Pain, No Diarrhea, No Constipation, No Melena, No Hematochezia, No Other Genitourinary: No Dysuria, No Frequency, No Incontinence, No Hematuria, No Retention, No Other Musculoskeletal: No other, No neck pain, No shoulder pain, No arm pain, No back pain, No hand pain, No leg pain, No foot pain Skin: No Rash, No Lesions, No Jaundice, No Bruising, No Other Objective Vitals Vital Signs Date Time Temp Pulse Resp B/P (MAP) Pulse Ox O2 Delivery O2 Flow Rate FiO2 08/06/24 20:00 Room Air* 0 21 08/05/24 21:42 97.7 93 20 118/94 (102) 96 97.7 Intake/Output Intake and Output 08/07/24 07:00 Intake Total 640 ml Balance 640 ml Intake Oral 640 ml # Voids 3 Medications Current Medications Medications Dose Ordered Sig/Kim Route Start Time Stop Time Status Last Admin Dose Admin Atorvastatin Calcium 40 mg HS PO 08/03/24 22:00 08/06/24 21:26 40 MG Hydralazine HCl 10 mg Q6HP PRN IV 08/03/24 20:15 Divalproex Sodium 500 mg BID PO 08/03/24 22:00 08/06/24 21:27 500 MG Risperidone 3 mg DAILY PO 08/04/24 10:00 08/05/24 09:02 3 MG Sodium Chloride 10 ml Q8HR IV 08/03/24 22:00 08/06/24 21:27 10 ML Acetaminophen/ Hydrocodone Bitart 1 tab Q4HP PRN PO 08/03/24 20:15 Ondansetron HCl 4 mg Q4HP PRN IV 08/03/24 20:15 Docusate Sodium 100 mg BIDPRN PRN PO 08/03/24 20:15 Acetaminophen 650 mg Q6HP PRN PO 08/03/24 20:15 Nitroglycerin 0.4 mg Q5MINP PRN SL 08/03/24 22:45 Morphine Sulfate 2 mg Q30M PRN IV 08/03/24 22:45 Nicotine 1 patch DAILY TD 08/04/24 15:15 08/05/24 09:02 1 PATCH Haloperidol Lactate 10 mg Q12HP PRN IM 08/05/24 11:15 08/06/24 20:27 10 MG Diphenhydramine HCl 50 mg Q12HP PRN IM 08/05/24 23:00 08/06/24 20:28 50 MG Lorazepam 1 mg Q6HP PRN IM 08/06/24 23:00 08/07/24 06:27 1 MG Laboratory Results Laboratory Tests 08/04/24 09:25 Urinalysis Test 08/03/24 18:24 Urine Color Yellow (Yellow) Urine Clarity Clear (Clear) Urine pH 6.0 (5.0-9.0) Urine Specific [place] 1.028 (1.001-1.035) Urine Protein Trace (Negative) H Urine Ketones 1+ (Negative) H Urine Blood Negative /uL (Negative) Urine Nitrite Negative (Negative) Urine Bilirubin Negative (Negative) Urine Urobilinogen Normal mg/dL (Negative) Urine Leukocyte Esterase Negative /uL (Negative) Urine RBC 8 /hpf (0 - 3) Urine Microscopic WBC 1 /HPF (0-3) Urine Squamous Epithelial Cells Few /hpf (<5) Urine Bacteria None seen /hpf (None Seen) Urine Mucus Few (None Seen) Urine Glucose Trace mg/dL (Normal) Labs and/or images reviewed: Labs reviewed by me, Image(s) reviewed by me Assessment/Plan Assessment/Plan Acute Metabolic encephalopathy Psychosis with agitation: Tele psych consult by Dr. Pierre treated advised 5150 and transfer to inpatient psych facility, placed on Haldol 10 mg intramuscular with Benadryl 50 mg intramuscular p.r.n. COPD GERD Hypertension Hypercholesterolemia: Lipitor Schizophrenia : Risperdal History of seizures Depakote History of pacemaker History of splenectomy History of left hip surgery CT head negative Patient we will be placed on 5150 and transfer to inpatient psych facility Medically stable for transfer to inpatient psych facility Examined today: Patient was found sleeping Awaiting transfer to inpatient psych facility Plan discussed with: Patient My Orders Orders - BETHANY EMERY MD Procedure Category Date Status Time Discharge DISCHARGE 08/06/24 Transmitted 09:32 Communication Order ORDERS 08/06/24 Transmitted 09:33 * Team Driver CONS 08/06/24 Transmitted Consult Communication Order ORDERS 08/06/24 Transmitted 09:40 Date of Service: August 07, 2024 Billing Provider: BETHANY EMERY MD Common Visit Codes: [id number] INP/OBS CARE(HIGH) BETHANY EMERY MD August 07, 2024 07:42
[2024-08-07 08:00] VITALS: PULSE 93; RESP 20
[2024-08-07 13:00] VITALS: BP 106/57; PULSE 84; RESP 18; TEMP 97.9; O2SAT 89
[2024-08-07 17:00] VITALS: BP 126/68; PULSE 88; RESP 18; TEMP 98.1; O2SAT 93
[2024-08-07 20:00] VITALS: PULSE 86; RESP 17
[2024-08-07 21:00] VITALS: BP 124/67; PULSE 86; RESP 17; TEMP 97.4
[2024-08-08 08:00] VITALS: RESP 17
--- NOTE | 2024-08-08 08:00 | DVHPN2 ---
Reviewed: Care Plan, H&P, Labs, Medications, Previous Orders, Radiology Changes from previous H/P or p: No Changes General: Per HPI Eyes: No Pain, No Vision change, No Conjunctivae inflammation, No Eyelid inflammation, No Other, No Redness ENT: No Ear pain, No Ear discharge, No Nose pain, No Nose discharge, No Nose congestion, No Mouth pain, No Mouth swelling, No Throat pain, No Throat swelling, No Other Cardiovascular: No Chest Pain, No Palpitations, No Orthopnea, No Paroxysmal Noc. Dyspnea, No Edema, No Lt Headedness, No Other Respiratory: No Cough, No Dry, No Shortness of breath, No SOB with excertion, No Wheezing, No Hemoptysis, No Pleuritic Pain, No Sputum, No Other Gastrointestinal: No Nausea, No Vomiting, No Abdominal Pain, No Diarrhea, No Constipation, No Melena, No Hematochezia, No Other Genitourinary: No Dysuria, No Frequency, No Incontinence, No Hematuria, No Retention, No Other Musculoskeletal: No other, No neck pain, No shoulder pain, No arm pain, No back pain, No hand pain, No leg pain, No foot pain Skin: No Rash, No Lesions, No Jaundice, No Bruising, No Other Objective Vitals Vital Signs Date Time Temp Pulse Resp B/P (MAP) Pulse Ox O2 Delivery O2 Flow Rate FiO2 08/07/24 21:00 97.4 86 17 124/67 (86) 97.4 08/07/24 20:00 Room Air* 0 21 08/07/24 17:00 93 Intake/Output Intake and Output 08/08/24 07:00 Intake Total 1280 ml Balance 1280 ml Intake Oral 1280 ml # Voids 5 Medications Current Medications Medications Dose Ordered Sig/Kim Route Start Time Stop Time Status Last Admin Dose Admin Atorvastatin Calcium 40 mg HS PO 08/03/24 22:00 08/06/24 21:26 40 MG Hydralazine HCl 10 mg Q6HP PRN IV 08/03/24 20:15 Divalproex Sodium 500 mg BID PO 08/03/24 22:00 08/07/24 21:44 500 MG Risperidone 3 mg DAILY PO 08/04/24 10:00 08/07/24 08:58 3 MG Sodium Chloride 10 ml Q8HR IV 08/03/24 22:00 08/08/24 05:37 10 ML Acetaminophen/ Hydrocodone Bitart 1 tab Q4HP PRN PO 08/03/24 20:15 Ondansetron HCl 4 mg Q4HP PRN IV 08/03/24 20:15 Docusate Sodium 100 mg BIDPRN PRN PO 08/03/24 20:15 Acetaminophen 650 mg Q6HP PRN PO 08/03/24 20:15 Nitroglycerin 0.4 mg Q5MINP PRN SL 08/03/24 22:45 Morphine Sulfate 2 mg Q30M PRN IV 08/03/24 22:45 Nicotine 1 patch DAILY TD 08/04/24 15:15 08/07/24 08:58 1 PATCH Haloperidol Lactate 10 mg Q12HP PRN IM 08/05/24 11:15 08/08/24 00:12 10 MG Diphenhydramine HCl 50 mg Q12HP PRN IM 08/05/24 23:00 08/08/24 00:01 50 MG Lorazepam 1 mg Q6HP PRN IM 08/06/24 23:00 08/07/24 06:27 1 MG Laboratory Results Laboratory Tests 08/04/24 09:25 Urinalysis Test 08/03/24 18:24 Urine Color Yellow (Yellow) Urine Clarity Clear (Clear) Urine pH 6.0 (5.0-9.0) Urine Specific [place] 1.028 (1.001-1.035) Urine Protein Trace (Negative) H Urine Ketones 1+ (Negative) H Urine Blood Negative /uL (Negative) Urine Nitrite Negative (Negative) Urine Bilirubin Negative (Negative) Urine Urobilinogen Normal mg/dL (Negative) Urine Leukocyte Esterase Negative /uL (Negative) Urine RBC 8 /hpf (0 - 3) Urine Microscopic WBC 1 /HPF (0-3) Urine Squamous Epithelial Cells Few /hpf (<5) Urine Bacteria None seen /hpf (None Seen) Urine Mucus Few (None Seen) Urine Glucose Trace mg/dL (Normal) Labs and/or images reviewed: Labs reviewed by me, Image(s) reviewed by me Assessment/Plan Assessment/Plan Acute Metabolic encephalopathy Psychosis with agitation: Tele psych consult by Dr. Pierre treated advised 5150 and transfer to inpatient psych facility, placed on Haldol 10 mg intramuscular with Benadryl 50 mg intramuscular p.r.n. COPD GERD Hypertension Hypercholesterolemia: Lipitor Schizophrenia : Risperdal History of seizures Depakote History of pacemaker History of splenectomy History of left hip surgery CT head negative Patient we will be placed on 5150 and transfer to inpatient psych facility Medically stable for transfer to inpatient psych facility Examined today: Patient was found pacing around in the room Awaiting transfer to inpatient psych facility Plan discussed with: Patient Date of Service: August 08, 2024 Billing Provider: BETHANY EMERY MD Common Visit Codes: [id number] INP/OBS CARE(HIGH) BETHANY EMERY MD August 08, 2024 08:00
[2024-08-08 08:53] VITALS: BP 122/70; PULSE 90; RESP 20; TEMP 98; O2SAT 95
[2024-08-08] MEDS: HALOPERIDOL LACTATE 5 MG/ML INJ VIAL IM PRN (09:52)
[2024-08-08] MEDS: diphenhdrAMINE HCL 50 MG/1 ML VL IM PRN (09:52)
[2024-08-08 11:45] VITALS: BP 145/113; PULSE 89; RESP 18; O2SAT 94
[2024-08-08 16:54] VITALS: BP 147/88; PULSE 85; RESP 20; O2SAT 100
--- NOTE | 2024-08-09 08:18 | DVHPN2 ---
Reviewed: Care Plan, H&P, Labs, Medications, Previous Orders, Radiology Changes from previous H/P or p: No Changes General: Per HPI Eyes: No Pain, No Vision change, No Conjunctivae inflammation, No Eyelid inflammation, No Other, No Redness ENT: No Ear pain, No Ear discharge, No Nose pain, No Nose discharge, No Nose congestion, No Mouth pain, No Mouth swelling, No Throat pain, No Throat swelling, No Other Cardiovascular: No Chest Pain, No Palpitations, No Orthopnea, No Paroxysmal Noc. Dyspnea, No Edema, No Lt Headedness, No Other Respiratory: No Cough, No Dry, No Shortness of breath, No SOB with excertion, No Wheezing, No Hemoptysis, No Pleuritic Pain, No Sputum, No Other Gastrointestinal: No Nausea, No Vomiting, No Abdominal Pain, No Diarrhea, No Constipation, No Melena, No Hematochezia, No Other Genitourinary: No Dysuria, No Frequency, No Incontinence, No Hematuria, No Retention, No Other Musculoskeletal: No other, No neck pain, No shoulder pain, No arm pain, No back pain, No hand pain, No leg pain, No foot pain Skin: No Rash, No Lesions, No Jaundice, No Bruising, No Other Objective Vitals Vital Signs Date Time Temp Pulse Resp B/P (MAP) Pulse Ox O2 Delivery O2 Flow Rate FiO2 08/09/24 08:00 Room Air* 0 21 08/08/24 16:54 85 20 147/88 (107) 100 08/08/24 08:53 98.0 98.0 Intake/Output Intake and Output 08/09/24 07:00 Intake Total 1674 ml Output Total 150 ml Balance 1524 ml Intake Oral 1674 ml Output Urine Total 150 ml # Voids 9 # Bowel Movements 2 Medications Current Medications Medications Dose Ordered Sig/Kim Route Start Time Stop Time Status Last Admin Dose Admin Atorvastatin Calcium 40 mg HS PO 08/03/24 22:00 08/08/24 20:55 40 MG Hydralazine HCl 10 mg Q6HP PRN IV 08/03/24 20:15 Divalproex Sodium 500 mg BID PO 08/03/24 22:00 08/08/24 20:55 500 MG Risperidone 3 mg DAILY PO 08/04/24 10:00 08/08/24 10:44 3 MG Sodium Chloride 10 ml Q8HR IV 08/03/24 22:00 08/08/24 14:07 10 ML Acetaminophen/ Hydrocodone Bitart 1 tab Q4HP PRN PO 08/03/24 20:15 Ondansetron HCl 4 mg Q4HP PRN IV 08/03/24 20:15 Docusate Sodium 100 mg BIDPRN PRN PO 08/03/24 20:15 Acetaminophen 650 mg Q6HP PRN PO 08/03/24 20:15 Nitroglycerin 0.4 mg Q5MINP PRN SL 08/03/24 22:45 Morphine Sulfate 2 mg Q30M PRN IV 08/03/24 22:45 Nicotine 1 patch DAILY TD 08/04/24 15:15 08/08/24 10:48 1 PATCH Lorazepam 1 mg Q6HP PRN IM 08/06/24 23:00 08/08/24 18:25 1 MG Haloperidol Lactate 10 mg Q6HR PRN IM 08/08/24 08:00 08/08/24 09:52 10 MG Diphenhydramine HCl 50 mg Q6HR PRN IM 08/08/24 08:15 08/08/24 09:52 50 MG Laboratory Results Laboratory Tests 08/04/24 09:25 Urinalysis Test 08/03/24 18:24 Urine Color Yellow (Yellow) Urine Clarity Clear (Clear) Urine pH 6.0 (5.0-9.0) Urine Specific [place] 1.028 (1.001-1.035) Urine Protein Trace (Negative) H Urine Ketones 1+ (Negative) H Urine Blood Negative /uL (Negative) Urine Nitrite Negative (Negative) Urine Bilirubin Negative (Negative) Urine Urobilinogen Normal mg/dL (Negative) Urine Leukocyte Esterase Negative /uL (Negative) Urine RBC 8 /hpf (0 - 3) Urine Microscopic WBC 1 /HPF (0-3) Urine Squamous Epithelial Cells Few /hpf (<5) Urine Bacteria None seen /hpf (None Seen) Urine Mucus Few (None Seen) Urine Glucose Trace mg/dL (Normal) Labs and/or images reviewed: Labs reviewed by me, Image(s) reviewed by me Assessment/Plan Assessment/Plan Acute Metabolic encephalopathy Psychosis with agitation: Tele psych consult by Dr. Pierre treated advised 5150 and transfer to inpatient psych facility, placed on Haldol 10 mg intramuscular with Benadryl 50 mg intramuscular p.r.n. COPD GERD Hypertension Hypercholesterolemia: Lipitor Schizophrenia : Risperdal History of seizures Depakote History of pacemaker History of splenectomy History of left hip surgery CT head negative Patient placed on 5150 and transfer to inpatient psych facility Medically stable for transfer to inpatient psych facility Examined today: Patient was found pacing around in the room Patient to be transferred to inpatient psych facility today 08-09-24 Kizzy Discharge order updated Plan discussed with: Patient My Orders Orders - BETHANY EMERY MD Procedure Category Date Status Time Imaging Transfer ORDERS 08/09/24 Transmitted Request 05:51 Date of Service: August 09, 2024 Billing Provider: BETHANY EMERY MD Common Visit Codes: [id number] INP/OBS CARE(HIGH) BETHANY EMERY MD August 09, 2024 08:18
[2024-08-09 13:00] VITALS: BP 118/79; PULSE 92; RESP 20; TEMP 98.1; O2SAT 96
[2024-08-09 16:30] VITALS: BP 124/77; PULSE 88; RESP 18; TEMP 98; O2SAT 96
== END 2024-08-09 17:18 | DRG 72 ==
LOC: ER 10:05 → EDBD 10:05 → OVERFLOW 22:32 → TELE-WESTW 08-04 02:33 → TELE-CENTR 08-04 11:50
PROVIDERS: ADMIT Family Medicine; ATTEND Family Medicine
DX: G93.41 Metabolic encephalopathy (principal); K21.9 Gastro-esophageal reflux disease without esophagitis; J44.9 Chronic obstructive pulmonary disease, unspecified; F20.9 Schizophrenia, unspecified; I10 Essential (primary) hypertension; E78.00 Pure hypercholesterolemia, unspecified; F31.9 Bipolar disorder, unspecified; Z79.899 Other long term (current) drug therapy; Z90.81 Acquired absence of spleen; Z95.0 Presence of cardiac pacemaker
CPT/HCPCS: 36415; 70450; 71045; 80053; 80307; 80320; 81001; 82140; 85025; 87426; 93005; 96372; 99291; G0378

== ENCOUNTER 2024-12-16 11:05 | Inpatient (IN) | payer MEDICAID, MEDICARE ==
[~2024-12-16] VITALS: Ht 177.8 cm; Wt 91.1 kg
[~2024-12-16 11:05] MED LIST changes: +DIVA1TAB59 PO; +DOCU-265 PO; +PROP1TAB51 PO; +QUET1TAB11 PO; +QUET50TA27 PO; +TRAZ-227 PO
--- NOTE | 2024-12-16 11:13 | ECG ---
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
[2024-12-16 11:38] VITALS: PULSE 55; RESP 12; O2SAT 98
--- NOTE | 2024-12-16 12:15 | DVH ---
EXAM: XY CHEST PORTABLE HISTORY: gen weak TECHNIQUE: 1 view of the chest COMPARISON: XY CHEST PORTABLE on DOS: 08/03/24 FINDINGS/IMPRESSION: LUNGS: No pleural effusion, consolidation, or pneumothorax MEDIASTINUM: Unremarkable BONES: No acute osseous abnormality OTHER: None
[2024-12-16 12:16] LABS: Hematocrit 40.0 % (41.0-53.0); Hemoglobin 13.3 g/dL (13.5-17.5); Mean Corpuscular Hemoglobin 31.6 pg (28.0-32.0); Mean Corpuscular Volume 95.0 fL (80.0-100.0); Nucleated Red Blood Cells % 0.0 %
--- NOTE | 2024-12-16 12:22 | ED.PDOC ---
History of Present Illness HPI Comments 74 y.o male with PMHx of COPD, SZ, GERD, high lipids, liver dz, HTN and Schizophrenia, presents to the ED via EMS for an evaluation of generalized weakness x 1 week. Patient is coming from [facility] care facility where staff noticed increased weakness. Upon ED arrival, patient is alert and oriented x 2, unable to provide medical information or reason he was brought to the ED. Patient was saturating at 97% with 4 liters of oxygen, tapered down to RA where he kept his SPO2 at 94-99%. Patient placed on 2 liters of oxygen support. Chief Complaint: General Weakness Time Seen by MD: 12:15 Primary Care Provider: UNKNOWN Reviewed Notes: Nurses Notes, Medical Coding Auditor Notes, Medications, Allergies Allergies: Coded Allergies: NO KNOWN ALLERGIES (Unverified , 10/23/23) Home Meds Active Scripts Mupirocin Calcium (Topical) (MUPIROCIN) 2 % Cre, 2 % EX 2XW for 4 Days, #1 CRE Prov:TYLOR REDD RESIDENT 01/25/24 Cephalexin Monohydrate (Cephalexin) 500 Mg Cap, 1 CAP PO BID for 5 Days, #20 CAP Prov:TYLOR REDD RESIDENT 01/25/24 Risperidone (RisperDAL TABLET) 1 Mg Tb, 1 TAB PO BID, #60 TAB 1 Refill Prov:BETHANY EMERY MD 11/09/23 Reported Medications Quetiapine Fumerate (QUETIAPINE FUMARATE) 50 Mg Tab, TAB PO 08/04/24 Divalproex Sodium (Divalproex Sodium Dr) 500 Mg Tab, 1 TAB PO TID 08/04/24 Quetiapine Fumerate (QUETIAPINE FUMARATE) 25 Mg Tab, TAB PO 08/04/24 Trazodone Hcl (Trazodone Hcl) 50 Mg Tab, 1 TAB PO 08/04/24 Propranolol HCl (Propranolol Hydrochloride) 10 Mg Tab, 1 TAB PO TID 08/04/24 Docusate Sodium (Docusate Sodium) 100 Mg Cap, 1 CAP PO BID 08/04/24 Bisacodyl (Bisacodyl Ec) 5 Mg Tab, 10 MG [place] DAILYP PRN for FOR CONSTIPATION, MG 11/05/23 Magnesium Hydroxide (Milk Of Magnesia) 400 Mg/5 Ml [place], 400 MG PO, ML 11/05/23 Risperidone (Risperidone) 3 Mg Tab, 1 TAB PO BID, #60 TAB 2 Refills 11/05/23 Risperidone (Risperidone) 0.25 Mg Tab, 0.25 MG PO BID, TAB 11/05/23 Divalproex Sodium (Depakote) 500 Mg Tab, 1 TAB PO BID, #60 TAB 1 Refill 11/05/23 Divalproex Sodium (Depakote) 250 Mg Tab, 1 TAB PO BID, #60 TAB 2 Refills 11/05/23 Atorvastatin Calcium (ATORVASTATIN CALCIUM) 40 Mg Tab, 1 TAB PO DAILY, #30 TAB 5 Refills 11/05/23 Information Source: Emergency Med Personnel Mode of Arrival: EMS Severity: Moderate Timing: Weeks (1) Duration: Since onset Past Medical History PAST MEDICAL HISTORY: COPD, GERD, High Lipids, HTN, Schizophrenia, Seizures Surgical History: Pacemaker Surgical History (Other): Splenectomy, left hip surgery Family History Family History: Reviewed,noncontributory to illness Social History Smoker: Unknown Alcohol: Unknown Drugs: Unknown Lives In: [facility] Constitutional: reports: weakness Unable to Obtain due to: Altered Mental Status, Other (patient is alert and orientated x2-3 ) Physical Exam General Appearance: No Apparent Distress HEENT: Other (Pupils and face symmetric. Dry mucous membranes.) Neck: Full Range of Motion, Normal Inspection Respiratory: Decreased Breath Sounds, No Accessory Muscle Use, No Respiratory Distress Cardiovascular: No Edema, No JVD, Regular Rate/Rhythm Breast Exam: Deferred Gastrointestinal: Non Tender, Soft Genitalia: Deferred Pelvic: Deferred Rectal: Deferred Extremities: Normal inspection, Normal range of motion, Non-tender, No pedal edema Neurologic: Alert (Oriented x1), Other (Moves all extremities. No gross focal deficit.) Cerebellar Function: NOT DONE Reflexes: NOT DONE Skin: Dry, Normal Color, Warm Lymphatic: NOT DONE Was a procedure done? Was a procedure done?: No EKG EKG : Comments Sinus Abhishek, rate 54, normal intervals, left axis deviation, nonspecific T change. Differential Dx Considerations may include: UTI, metabolic encephalopathy, psychosis, dehydration, Electrolyte imbalance, Viral syndrome, among others X-Ray, Labs, Meds, VS Vital Signs Date Time Temp Pulse Resp B/P (MAP) Pulse Ox O2 Delivery O2 Flow Rate FiO2 12/16/24 11:38 55 12 98 Nasal Cannula* 4 36 12/16/24 11:33 97.9 54 14 123/75 (91) 96 97.9 12/16/24 11:12 98.3 54 22 109/67 97 98.3 12/16/24 11:08 54 Lab Test 12/16/24 12:30 12/16/24 11:52 12/16/24 11:40 Range/Units Urine Color Yellow Yellow Urine Clarity Turbid H Clear Urine pH 6.0 5.0-9.0 Urine Specific [place] 1.028 1.001-1.035 Urine Protein 1+ H Negative Urine Ketones Trace Negative Urine Blood 1+ H Negative /uL Urine Nitrite 2+ H Negative Urine Bilirubin Negative Negative Urine Urobilinogen Normal Negative mg/dL Urine Leukocyte Esterase 3+ Negative /uL Urine RBC 28 0 - 3 /hpf Urine Microscopic WBC 301 H 0-3 /HPF Urine Squamous Epithelial Cells Few <5 /hpf Urine Bacteria Mod H None Seen /hpf Urine Mucus Few None Seen Urine Glucose Normal Normal mg/dL White Blood Count 11.9 H 4.4-10.8 10^3/uL Red Blood Count 4.21 L 4.5-5.90 10^6/uL Hemoglobin 13.3 L 13.5-17.5 g/dL Hematocrit 40.0 L 41.0-53.0 % Mean Corpuscular Volume 95.0 80.0-100.0 fL Mean Corpuscular Hemoglobin 31.6 28.0-32.0 pg Mean Corpuscular Hemoglobin Concent 33.2 32.0-36.0 g/dL Red Cell Distribution Width 16.8 H 11.8-14.3 % Platelet Count 184 140-450 10^3/uL Mean Platelet Volume 9.2 6.9-10.8 fL Neutrophils (%) (Auto) 59.6 37.0-80.0 % Lymphocytes (%) (Auto) 29.6 10.0-50.0 % Monocytes (%) (Auto) 9.7 0.0-12.0 % Eosinophils (%) (Auto) 0.7 0.0-7.0 % Basophils (%) (Auto) 0.4 0.0-2.0 % Neutrophils # (Auto) 7.1 1.6-8.6 10 ^3/uL Lymphocytes # (Auto) 3.5 0.4-5.4 10 ^3/uL Monocytes # (Auto) 1.2 0-1.3 10 ^3/uL Eosinophils # (Auto) 0.1 0-0.8 10 ^3/uL Basophils # (Auto) 0.1 0-0.2 10 ^3/uL Nucleated Red Blood Cells 0.0 % Lactic Acid Level 0.8 0.4-2.0 mmol/L Troponin I High Sensitivity 3 L 3 L </=54 ng/L B-Type Natriuretic Peptide 65.94 0-100 pg/mL Sodium Level 141 136-145 mmol/L Potassium Level 4.4 3.5-5.1 mmol/L Chloride Level 110 H 98-107 mmol/L Carbon Dioxide Level 23 20-31 mmol/L Anion Gap 8 5-15 Blood Urea Nitrogen 12 9-23 mg/dL Creatinine 0.87 0.700-1.30 mg/dL Glomerular Filtration Rate Calc 91 >90 mL/min BUN/Creatinine Ratio 13.8 10.0-20.0 Serum Glucose 88 74-106 mg/dL Calcium Level 8.7 8.7-10.4 mg/dL Total Bilirubin 0.3 0.2-1.0 mg/dL Aspartate Amino Transferase (AST) 21 13-40 U/L Alanine Aminotransferase (ALT) 13 7-40 U/L Alkaline Phosphatase 66 46-116 U/L Total Protein 6.3 5.7-8.2 g/dL Albumin 3.4 3.2-4.8 g/dL EXAM: XY CHEST PORTABLE HISTORY: gen weak TECHNIQUE: 1 view of the chest COMPARISON: XY CHEST PORTABLE on DOS: 08/03/24 FINDINGS/IMPRESSION: LUNGS: No pleural effusion, consolidation, or pneumothorax MEDIASTINUM: Unremarkable BONES: No acute osseous abnormality OTHER: None X-Ray, Labs, Meds, VS Comment 74-year-old male with a history of bipolar/schizophrenia, COPD, hypertension, dyslipidemia, GERD and seizures brought in by EMS from [facility] for evaluation of generalized weakness Vitals remarkable for heart rate 54 Exam remarkable for orientation x1 Rhythm strip independently interpreted by me: Sinus bradycardia, rate 54, no ectopy. Chest x-ray unremarkable CBC remarkable for WBC 11.9. CMP, BNP, 2 serial troponins and lactate unremarkable. UA abnormal consistent with UTI. Patient treated with the following in the ED: Rocephin 1 g IV On re-evaluation, exam is unchanged. Vitals were stable. Plan is to admit the patient for IV antibiotics. Time of 1ST Reevaluation: 12:45 Reevaluation 1ST: Unchanged Patient Education/Counseling: Other Family Education/Counseling: No Family Present SEPSIS Sepsis Screen Date sepsis recognized/suspect: Dec 16, 2024 Time Sepsis recognized/suspect: 1109 Recent Procedure: No On Antibiotic Therapy: No Respiratory Rate >20: No Heart Rate >90: No Temp<36 C (96.8 F) or >38.3 C: No SBP <90 or MAP <65 mmHG: No New Acute Mental Status Change: No Is the patient on CPAP, BIPAP,: No Physician Orders Chest Portable (12/16/24 11:22) Blood Culture (12/16/24 11:22) Ceftriaxone 1gm/50ml (Rocephin) (12/16/24 13:45) Vital Signs Date Time Temp Pulse Resp B/P (MAP) Pulse Ox O2 Delivery O2 Flow Rate FiO2 12/16/24 11:38 55 12 98 Nasal Cannula* 4 36 12/16/24 11:33 97.9 54 14 123/75 (91) 96 97.9 12/16/24 11:12 98.3 54 22 109/67 97 98.3 12/16/24 11:08 54 Laboratory Tests Test 12/16/24 11:52 Lactic Acid Level 0.8 mmol/L (0.4-2.0) White Blood Count 11.9 10^3/uL (4.4-10.8) H Departure 1 Departure Time of Disposition: 13:46 Impression: Primary Impression: UTI (urinary tract infection) Additional Impression: Metabolic encephalopathy Disposition: ADMITTED INPATIENT Admit to: Tele (Sinus rhythm, rate 54, normal intervals, left axis deviation, nonspecific T change.) Condition: Guarded Critical Care Note Critical Care Time?: No Stability Stability form required: No Heart Score Heart Score: Heart Score Response (Comments) Value History N/A 0 EKG N/A 0 Age N/A 0 Risk Factors N/A 0 Troponin N/A 0 Total 0 I personally scribed for AME MCCURDY MD ([facility]) on 12/16/24 at 12:22. Electronically submitted by Nisha Mckoy ([facility]). I personally scribed for AME MCCURDY MD ([facility]) on 12/16/24 at 12:29. Electronically submitted by Nisha Mckoy ([facility]). AME MCCURDY MD Dec 16, 2024 12:22
[2024-12-16 12:27] LABS: Alanine Aminotransferase 13 U/L (7-40); Albumin 3.4 g/dL (3.2-4.8); Alkaline Phosphatase 66 U/L (46-116); Anion Gap 8 (5-15); BUN/Creatinine Ratio 13.8 (10.0-20.0); Bilirubin, Total 0.3 mg/dL (0.2-1.0); Blood Urea Nitrogen 12 mg/dL (9-23); Calcium 8.7 mg/dL (8.7-10.4); Carbon Dioxide 23 mmol/L (20-31); Chloride 110 mmol/L (98-107); Glucose 88 mg/dL (74-106); Potassium 4.4 mmol/L (3.5-5.1); Sodium 141 mmol/L (136-145)
[2024-12-16 12:59] LABS: Urine Protein, UAD 1+ (Negative)
[2024-12-16 13:20] LABS: Total Protein 6.3 g/dL (5.7-8.2)
[2024-12-16 21:18] VITALS: PULSE 78; RESP 15; O2SAT 95
[2024-12-16] MEDS ORDERED: ONDANSETRON HCL 4 MG/2 ML VIAL IV PRN (21:30)
[2024-12-16] MEDS ORDERED: ACETAMINOPHEN 325 MG TAB PO PRN (21:30)
[2024-12-16] MEDS: ATORVASTATIN 20 MG TAB PO SCH (22:53)
[2024-12-16] MEDS: PROPRANOLOL HCL 20 MG TAB PO SCH (22:54)
--- NOTE | 2024-12-17 04:03 | DVHHP2 ---
History of Present Illness Reason for Visit: Generalized weakness History of Present Illness 74-year-old male presents for evaluation of generalized weakness. [facility] a [facility] less than home and has been noticed to be progressively weaker over the past one-week. Patient is currently alert oriented x2. No fo kirill neurologic deficits noted. No complaints of chest pain or shortness for breath. Past Medical History . , COPD, dyslipidemia, hypertension, seizures, schizophrenia Past Surgical History Left hip surgery, splenectomy Review of Systems Review of Systems Review of systems are currently negative otherwise addressed in HPI. Allergies: Coded Allergies: NO KNOWN ALLERGIES (Unverified , 10/23/23) Medications Current Medications Medications Dose Ordered Sig/Kim Route Start Time Stop Time Status Last Admin Dose Admin Propranolol HCl 10 mg TID PO 12/16/24 22:00 12/16/24 22:54 10 MG Atorvastatin Calcium 40 mg HS PO 12/16/24 22:00 12/16/24 22:53 40 MG Divalproex Sodium 500 mg BID PO 12/16/24 22:00 12/16/24 22:52 500 MG Risperidone 1 mg DAILY PO 12/17/24 10:00 Ondansetron HCl 4 mg Q4HP PRN IV 12/16/24 21:30 Enoxaparin Sodium 40 mg DAILY SC 12/17/24 10:00 Acetaminophen 650 mg Q6HP PRN PO 12/16/24 21:30 Exam Vital Signs Vital Signs Date Time Temp Pulse Resp B/P (MAP) Pulse Ox O2 Delivery O2 Flow Rate FiO2 12/16/24 23:05 59 15 131/80 (97) 95 12/16/24 21:18 Room Air* 0 21 12/16/24 19:40 97.8 97.8 Exam Gen: 74-year-old male in mild distress, lethargic Skin: Warm, dry, normal color and texture, no rash. HEENT: Normocephalic atraumatic, mucous membranes moist and pink. Neck: Cervical and supraclavicular nodes normal without enlargement, trachea is midline, thyroid gland is normal without masses. Pulmonary: Clear to auscultation and percussion bilaterally. Cardiac: Regular rate and rhythm. No murmur Abdomen: Soft, nontender, nondistended, bowel sounds present all 4 quadrants, no guarding, no rigidity, no organomegaly. Extremities: No cyanosis, clubbing, no edema Neuro: Cranial nerves II through XII grossly intact, normal affect and speech, no focal motor deficits. Labs/Xrays ORDERING PHYSICIAN: AME MCCURDY MD PROCEDURE(s): CXRP - CHEST PORTABLE REASON: gen leana ORDER NUMBER(s): [id number], ACCESSION NUMBER(s): [id number] EXAM: XY CHEST PORTABLE HISTORY: gen dueñas TECHNIQUE: 1 view of the chest COMPARISON: XY CHEST PORTABLE on DOS: 08/03/24 FINDINGS/IMPRESSION: LUNGS: No pleural effusion, consolidation, or pneumothorax MEDIASTINUM: Unremarkable BONES: No acute osseous abnormality OTHER: None Labs Test 12/16/24 12:30 12/16/24 11:52 12/16/24 11:40 Range/Units Urine Color Yellow Yellow Urine Clarity Turbid H Clear Urine pH 6.0 5.0-9.0 Urine Specific [place] 1.028 1.001-1.035 Urine Protein 1+ H Negative Urine Ketones Trace Negative Urine Blood 1+ H Negative /uL Urine Nitrite 2+ H Negative Urine Bilirubin Negative Negative Urine Urobilinogen Normal Negative mg/dL Urine Leukocyte Esterase 3+ Negative /uL Urine RBC 28 0 - 3 /hpf Urine Microscopic WBC 301 H 0-3 /HPF Urine Squamous Epithelial Cells Few <5 /hpf Urine Bacteria Mod H None Seen /hpf Urine Mucus Few None Seen Urine Glucose Normal Normal mg/dL White Blood Count 11.9 H 4.4-10.8 10^3/uL Red Blood Count 4.21 L 4.5-5.90 10^6/uL Hemoglobin 13.3 L 13.5-17.5 g/dL Hematocrit 40.0 L 41.0-53.0 % Mean Corpuscular Volume 95.0 80.0-100.0 fL Mean Corpuscular Hemoglobin 31.6 28.0-32.0 pg Mean Corpuscular Hemoglobin Concent 33.2 32.0-36.0 g/dL Red Cell Distribution Width 16.8 H 11.8-14.3 % Platelet Count 184 140-450 10^3/uL Mean Platelet Volume 9.2 6.9-10.8 fL Neutrophils (%) (Auto) 59.6 37.0-80.0 % Lymphocytes (%) (Auto) 29.6 10.0-50.0 % Monocytes (%) (Auto) 9.7 0.0-12.0 % Eosinophils (%) (Auto) 0.7 0.0-7.0 % Basophils (%) (Auto) 0.4 0.0-2.0 % Neutrophils # (Auto) 7.1 1.6-8.6 10 ^3/uL Lymphocytes # (Auto) 3.5 0.4-5.4 10 ^3/uL Monocytes # (Auto) 1.2 0-1.3 10 ^3/uL Eosinophils # (Auto) 0.1 0-0.8 10 ^3/uL Basophils # (Auto) 0.1 0-0.2 10 ^3/uL Nucleated Red Blood Cells 0.0 % Lactic Acid Level 0.8 0.4-2.0 mmol/L Troponin I High Sensitivity 3 L </=54 ng/L B-Type Natriuretic Peptide 65.94 0-100 pg/mL Sodium Level 141 136-145 mmol/L Potassium Level 4.4 3.5-5.1 mmol/L Chloride Level 110 H 98-107 mmol/L Carbon Dioxide Level 23 20-31 mmol/L Anion Gap 8 5-15 Blood Urea Nitrogen 12 9-23 mg/dL Creatinine 0.87 0.700-1.30 mg/dL Glomerular Filtration Rate Calc 91 >90 mL/min BUN/Creatinine Ratio 13.8 10.0-20.0 Serum Glucose 88 74-106 mg/dL Calcium Level 8.7 8.7-10.4 mg/dL Total Bilirubin 0.3 0.2-1.0 mg/dL Aspartate Amino Transferase (AST) 21 13-40 U/L Alanine Aminotransferase (ALT) 13 7-40 U/L Alkaline Phosphatase 66 46-116 U/L Total Protein 6.3 5.7-8.2 g/dL Albumin 3.4 3.2-4.8 g/dL SEPSIS Sepsis Screen Date sepsis recognized/suspect: Dec 16, 2024 Time Sepsis recognized/suspect: 1929 Recent Procedure: No On Antibiotic Therapy: No Respiratory Rate >20: No Heart Rate >90: No Temp<36 C (96.8 F) or >38.3 C: No SBP <90 or MAP <65 mmHG: No New Acute Mental Status Change: No Is the patient on CPAP, BIPAP,: No Physician Orders Propranolol Hcl Tablet (Inderal Tablet) (12/16/24 22:00) Atorvastatin (Lipitor) (12/16/24 22:00) Divalproex Dr Tablet (Depakote "Dr" Tabl (12/16/24 22:00) Risperidone Tablet (Risperdal Tablet) (12/17/24 10:00) Urine Bacterial Culture (12/16/24 21:21) Basic Metabolic Panel (12/17/24 04:00) Admit (12/16/24 21:21) Ondansetron Hcl (Zofran) (12/16/24 21:30) Enoxaparin Sodium (Lovenox) (12/17/24 10:00) Complete Blood Count (12/17/24 04:00) Cardiac Diet-2gna,Lofat,Lochol (12/17/24 Breakfast) Condition: Stable (12/16/24 21:21) Acetaminophen Tablet (Tylenol Tablet) (12/16/24 21:30) Bedrest With Bathroom Privileg (12/16/24 21:21) Vital Signs Date Time Temp Pulse Resp B/P (MAP) Pulse Ox O2 Delivery O2 Flow Rate FiO2 12/16/24 23:05 59 15 131/80 (97) 95 12/16/24 22:54 63 175/65 12/16/24 21:18 78 15 95 Room Air* 0 21 12/16/24 21:00 63 15 142/73 (96) 93 Medications Medications Dose Ordered Sig/Kim Route Start Time Stop Time Status Last Admin Dose Admin Atorvastatin Calcium 40 mg HS PO 12/16/24 22:00 12/16/24 22:53 40 MG Divalproex Sodium 500 mg BID PO 12/16/24 22:00 12/16/24 22:52 500 MG Propranolol HCl 10 mg TID PO 12/16/24 22:00 12/16/24 22:54 10 MG Assessment/Plan Assessment/Plan Assessment Metabolic encephalopathy Glycated UTI History of schizophrenia Hypertension Plan Admit the patient to [facility] to the hospitalist Cinthia Urine bacterial culture pending Resume home medications Continue treatment per orders. Plan discussed with: Patient My Orders Orders - TORRES MARTÍNEZ Procedure Category Date Status Time Propranolol Hcl PHA 12/16/24 In Process Tablet (Inderal 22:00 Atorvastatin (Lipitor) PHA 12/16/24 In Process 22:[address] Tablet PHA 12/16/24 In Process (Depakote "Dr" Tabl 22:00 Risperidone Tablet PHA 12/17/24 In Process (Risperdal Tablet) 10:00 Urine Bacterial PREET 12/16/24 In Process Culture 21:21 Basic Metabolic Panel LAB 12/17/24 Logged 04:00 Admit ADMIT 12/16/24 Transmitted 21:21 Ondansetron Hcl PHA 12/16/24 In Process (Zofran) 21:30 Enoxaparin Sodium PHA 12/17/24 In Process (Lovenox) 10:00 Complete Blood Count LAB 12/17/24 Logged 04:00 Cardiac DIET 12/17/24 Transmitted Diet-2gna,Lofat,Lochol Breakfast Condition: Stable PANDA 12/16/24 In Process 21:21 Acetaminophen Tablet PHA 12/16/24 In Process (Tylenol Tablet) 21:30 Bedrest With Bathroom PANDA 12/16/24 In Process Privileg 21:21 Date of Service: Dec 16, 2024 Billing Provider: TORRES MARTÍNEZ Common Visit Codes: [id number] INP/OBS CARE (HIGH) TORRES MARTÍNEZ Dec 17, 2024 04:03
[2024-12-17 05:41] LABS: Hematocrit 41.5 % (41.0-53.0); Hemoglobin 14.2 g/dL (13.5-17.5); Mean Corpuscular Hemoglobin 32.2 pg (28.0-32.0); Mean Corpuscular Volume 94.2 fL (80.0-100.0); Nucleated Red Blood Cells % 0.0 %
[2024-12-17 05:51] LABS: Anion Gap 8 (5-15); Carbon Dioxide 26 mmol/L (20-31); Potassium 3.8 mmol/L (3.5-5.1); Sodium 144 mmol/L (136-145)
[2024-12-17 05:52] LABS: Calcium 9.1 mg/dL (8.7-10.4); Chloride 110 mmol/L (98-107)
[2024-12-17 05:57] LABS: BUN/Creatinine Ratio 18.9 (10.0-20.0); Blood Urea Nitrogen 17 mg/dL (9-23)
[2024-12-17 06:11] LABS: Glucose 121 mg/dL (74-106)
[2024-12-17 08:00] VITALS: PULSE 67; RESP 18; O2SAT 95
[2024-12-17] MEDS: risperiDONE 1 MG TAB PO SCH ×2 (10:41→21:44)
[2024-12-17] MEDS: ENOXAPARIN SOD 40 MG/0.4 ML SYRINGE SC SCH (10:41)
[2024-12-17 12:40] VITALS: BP 134/78; PULSE 55; RESP 14; TEMP 98; O2SAT 96
[2024-12-17 12:41] VITALS: BP 134/78; PULSE 55; RESP 14; TEMP 98; O2SAT 96
--- NOTE | 2024-12-17 16:53 | DVHPN2 ---
Subjective I am assuming the care of the patient from today onwards. Patient is here for generalized weakness. 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 Current Medications Medications Dose Ordered Sig/Kim Route Start Time Stop Time Status Last Admin Dose Admin Propranolol HCl 10 mg TID PO 12/16/24 22:00 12/17/24 14:31 10 MG Atorvastatin Calcium 40 mg HS PO 12/16/24 22:00 12/16/24 22:53 40 MG Divalproex Sodium 500 mg BID PO 12/16/24 22:00 12/17/24 10:42 500 MG Risperidone 1 mg DAILY PO 12/17/24 10:00 12/17/24 10:41 1 MG Ondansetron HCl 4 mg Q4HP PRN IV 12/16/24 21:30 Enoxaparin Sodium 40 mg DAILY SC 12/17/24 10:00 12/17/24 10:41 40 MG Acetaminophen 650 mg Q6HP PRN PO 12/16/24 21:30 Laboratory Results Laboratory Tests 12/17/24 05:21 Chemistry Test 12/17/24 05:21 Calcium Level 9.1 mg/dL (8.7-10.4) Urinalysis Test 12/16/24 12:30 Urine Color Yellow (Yellow) Urine Clarity Turbid (Clear) H Urine pH 6.0 (5.0-9.0) Urine Specific [employer] 1.028 (1.001-1.035) Urine Protein 1+ (Negative) H Urine Ketones Trace (Negative) Urine Blood 1+ /uL (Negative) H Urine Nitrite 2+ (Negative) H Urine Bilirubin Negative (Negative) Urine Urobilinogen Normal mg/dL (Negative) Urine Leukocyte Esterase 3+ /uL (Negative) Urine RBC 28 /hpf (0 - 3) Urine Microscopic WBC 301 /HPF (0-3) H Urine Squamous Epithelial Cells Few /hpf (<5) Urine Bacteria Mod /hpf (None Seen) H Urine Mucus Few (None Seen) Urine Glucose Normal mg/dL (Normal) Microbiology Microbiology Date/Time Source Procedure Growth Status 12/16/24 12:05 Blood Blood Culture - Preliminary NO GROWTH AFTER 24 HOURS OF INCUBATION. Resulted Assessment/Plan Assessment/Plan 74-year-old male with a known history of COPD, hypertension, dyslipidemia, seizure disorder, schizophrenia initially presented to the hospital with generalized weakness found to have 1. Generalized weakness 2. Acute metabolic encephalopathy currently resolved 3. Acute microscopic hematuria with a Gram-negative rods 4. COPD currently not in exacerbation 5. Hypertension 6. Dyslipidemia 7. Seizure disorder 8. Schizophrenia -IV antibiotics follow up urine culture -physical therapy evaluation and treatment, discharge plan once urine culture is back. Plan discussed with: Patient Date of Service: Dec 17, 2024 Billing Provider: ISA VERDE MD Common Visit Codes: [id number] INP/OBS CARE(MOD) ISA VERDE MD Dec 17, 2024 16:53
[2024-12-17 17:00] VITALS: BP 127/75; PULSE 62; RESP 16; TEMP 98.1; O2SAT 98
[2024-12-17] MEDS ORDERED: CLON0.1T PO (17:04)
[2024-12-17] MEDS ORDERED: QUET100T47 PO (17:04)
[2024-12-17] MEDS ORDERED: MELA3TAB27 PO (17:04)
[2024-12-17] MEDS ORDERED: TRAZ-227 PO (17:04)
[2024-12-17] MEDS ORDERED: LACT10SO3 PO (17:04)
[2024-12-17] MEDS ORDERED: clonazePAM 0.5 MG TAB PO PRN (17:15)
[2024-12-17] MEDS: risperiDONE 1 MG TAB ONE (17:31)
[2024-12-17] MEDS: PROPRANOLOL HCL 20 MG TAB ONE ×2 (17:33→17:42)
[2024-12-17] MEDS: ATORVASTATIN 20 MG TAB ONE (17:42)
[2024-12-17] MEDS: ENOXAPARIN SOD 40 MG/0.4 ML SYRINGE SC ONE (17:43)
[2024-12-17 21:00] VITALS: BP 133/70; PULSE 64; RESP 17; TEMP 97.4; O2SAT 96
[2024-12-17] MEDS: DOCUSATE SOD 100 MG CAP PO SCH (21:44)
[2024-12-17] MEDS: MELATONIN 5 MG TAB PO SCH (21:45)
[2024-12-18] VITALS (7 sets, daily range): BP systolic 104–121; BP diastolic 58–69; PULSE 59–69; RESP 16–18; TEMP 97–97.7; O2SAT 91–95
[2024-12-18] MEDS: LACTULOSE 20Gm/30ML SOLN PO SCH (09:55)
--- NOTE | 2024-12-18 17:02 | DVHPN2 ---
Subjective Patient's denies any complaints, urine culture is pending. 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 Medications Current Medications Medications Dose Ordered Sig/Kim Route Start Time Stop Time Status Last Admin Dose Admin Propranolol HCl 10 mg TID PO 12/16/24 22:00 12/18/24 06:38 10 MG Atorvastatin Calcium 40 mg HS PO 12/16/24 22:00 12/17/24 21:44 40 MG Ondansetron HCl 4 mg Q4HP PRN IV 12/16/24 21:30 Enoxaparin Sodium 40 mg DAILY SC 12/17/24 10:00 12/18/24 09:55 40 MG Acetaminophen 650 mg Q6HP PRN PO 12/16/24 21:30 Divalproex Sodium 500 mg TID PO 12/17/24 22:00 12/18/24 14:46 500 MG Risperidone 3 mg BID PO 12/17/24 22:00 12/18/24 09:55 3 MG Lactulose 30 ml DAILY PO 12/18/24 10:00 12/18/24 09:55 30 ML Clonazepam 0.5 mg Q6HP PRN PO 12/17/24 17:15 Melatonin 6 mg HS PO 12/17/24 22:00 12/17/24 21:45 6 MG Docusate Sodium 100 mg BID PO 12/17/24 22:00 12/18/24 09:45 100 MG Laboratory Results Laboratory Tests 12/17/24 05:21 Urinalysis Test 12/16/24 12:30 Urine Color Yellow (Yellow) Urine Clarity Turbid (Clear) H Urine pH 6.0 (5.0-9.0) Urine Specific [place] 1.028 (1.001-1.035) Urine Protein 1+ (Negative) H Urine Ketones Trace (Negative) Urine Blood 1+ /uL (Negative) H Urine Nitrite 2+ (Negative) H Urine Bilirubin Negative (Negative) Urine Urobilinogen Normal mg/dL (Negative) Urine Leukocyte Esterase 3+ /uL (Negative) Urine RBC 28 /hpf (0 - 3) Urine Microscopic WBC 301 /HPF (0-3) H Urine Squamous Epithelial Cells Few /hpf (<5) Urine Bacteria Mod /hpf (None Seen) H Urine Mucus Few (None Seen) Urine Glucose Normal mg/dL (Normal) Microbiology Microbiology Date/Time Source Procedure Growth Status 12/16/24 12:30 Voided Urine Urine Culture - Preliminary Resulted 12/16/24 12:05 Blood Blood Culture - Preliminary NO GROWTH AFTER 48 HOURS OF INCUBATION. Resulted Assessment/Plan Assessment/Plan 74-year-old male with a known history of COPD, hypertension, dyslipidemia, seizure disorder, schizophrenia initially presented to the hospital with generalized weakness found to have 1. Generalized weakness 2. Acute metabolic encephalopathy currently resolved 3. Acute microscopic hematuria with a Gram-negative rods 4. COPD currently not in exacerbation 5. Hypertension 6. Dyslipidemia 7. Seizure disorder 8. Schizophrenia -IV antibiotics follow up urine culture -physical therapy evaluation and treatment, discharge plan once urine culture is back. Plan discussed with: Other (Patient's bedside RN Brandi.) My Orders Orders - ISA VERDE MD Procedure Category Date Status Time Divalproex Dr Tablet PHA 12/17/24 In Process (Depakote "Dr" Tabl 22:00 Risperidone Tablet PHA 12/17/24 In Process (Risperdal Tablet) 22:00 Lactulose Oral PHA 12/18/24 In Process 10:00 Clonazepam Tablet PHA 12/17/24 In Process (Klonopin Tablet) 17:15 Melatonin (Melatonin) PHA 12/17/24 In Process 22:00 Docusate Sodium PHA 12/17/24 In Process Capsule (Colace 22:00 Date of Service: Dec 18, 2024 Billing Provider: ISA VERDE MD Common Visit Codes: [id number] INP/OBS CARE(MOD) ISA VERDE MD Dec 18, 2024 17:02
[2024-12-19] VITALS (7 sets, daily range): BP systolic 102–141; BP diastolic 59–78; PULSE 58–70; RESP 15–17; TEMP 97.5–98.4; O2SAT 92–98
--- NOTE | 2024-12-19 13:26 | DVHPN2 ---
Reviewed: Care Plan, H&P, Labs, Medications, Previous Orders, Radiology Changes from previous H/P or p: No Changes Objective Vitals Vital Signs Date Time Temp Pulse Resp B/P (MAP) Pulse Ox O2 Delivery O2 Flow Rate FiO2 12/19/24 12:55 97.7 61 15 128/75 (92) 96 97.7 12/19/24 08:30 Room Air* 0 21 Intake/Output Intake and Output 12/19/24 07:00 Intake Total 840 ml Balance 840 ml Intake Oral 840 ml # Voids 4 # Bowel Movements 1 Medications Current Medications Medications Dose Ordered Sig/Kim Route Start Time Stop Time Status Last Admin Dose Admin Propranolol HCl 10 mg TID PO 12/16/24 22:00 12/19/24 06:09 10 MG Atorvastatin Calcium 40 mg HS PO 12/16/24 22:00 12/18/24 21:37 40 MG Ondansetron HCl 4 mg Q4HP PRN IV 12/16/24 21:30 Enoxaparin Sodium 40 mg DAILY SC 12/17/24 10:00 12/19/24 10:15 40 MG Acetaminophen 650 mg Q6HP PRN PO 12/16/24 21:30 Divalproex Sodium 500 mg TID PO 12/17/24 22:00 12/19/24 06:08 500 MG Risperidone 3 mg BID PO 12/17/24 22:00 12/19/24 10:15 3 MG Lactulose 30 ml DAILY PO 12/18/24 10:00 12/19/24 10:15 30 ML Clonazepam 0.5 mg Q6HP PRN PO 12/17/24 17:15 Melatonin 6 mg HS PO 12/17/24 22:00 12/18/24 21:38 6 MG Docusate Sodium 100 mg BID PO 12/17/24 22:00 12/19/24 10:15 100 MG Laboratory Results Laboratory Tests 12/17/24 05:21 Urinalysis Test 12/16/24 12:30 Urine Color Yellow (Yellow) Urine Clarity Turbid (Clear) H Urine pH 6.0 (5.0-9.0) Urine Specific [place] 1.028 (1.001-1.035) Urine Protein 1+ (Negative) H Urine Ketones Trace (Negative) Urine Blood 1+ /uL (Negative) H Urine Nitrite 2+ (Negative) H Urine Bilirubin Negative (Negative) Urine Urobilinogen Normal mg/dL (Negative) Urine Leukocyte Esterase 3+ /uL (Negative) Urine RBC 28 /hpf (0 - 3) Urine Microscopic WBC 301 /HPF (0-3) H Urine Squamous Epithelial Cells Few /hpf (<5) Urine Bacteria Mod /hpf (None Seen) H Urine Mucus Few (None Seen) Urine Glucose Normal mg/dL (Normal) Microbiology Microbiology Date/Time Source Procedure Growth Status 12/16/24 12:30 Voided Urine Urine Culture - Preliminary Resulted 12/16/24 12:05 Blood Blood Culture - Preliminary NO GROWTH AFTER 72 HOURS OF INCUBATION. Resulted Labs and/or images reviewed: Labs reviewed by me, Image(s) reviewed by me Assessment/Plan Assessment/Plan 1. Generalized weakness 2. Acute metabolic encephalopathy currently resolved 3. Acute microscopic hematuria with a Gram-negative rods 4. COPD currently not in exacerbation 5. Hypertension 6. Dyslipidemia 7. Seizure disorder 8. Schizophrenia 9. Sepsis secondary to urinary tract infection: Blood cultures negative, urine cultures growing Gram-negative rods, Rocephin Plan discussed with: Patient Date of Service: Dec 19, 2024 Billing Provider: BETHANY EMERY MD Common Visit Codes: [id number] INP/OBS CARE(HIGH) BETHANY EMERY MD Dec 19, 2024 13:25
[2024-12-19] MEDS: ERTAPENEM SOD INJ 1 GM in SODIUM CHL 0.9% 50 ML IV ONE (18:02)
[2024-12-20 00:42] VITALS: BP 107/58; PULSE 60; RESP 17; TEMP 97.8; O2SAT 93
[2024-12-20 04:51] VITALS: BP 110/63; PULSE 60; RESP 16; TEMP 97.4; O2SAT 100
[2024-12-20 08:42] VITALS: BP 111/80; PULSE 74; RESP 18; TEMP 97.8; O2SAT 97
--- NOTE | 2024-12-20 09:17 | DVHPN2 ---
Reviewed: Care Plan, H&P, Labs, Medications, Previous Orders, Radiology Changes from previous H/P or p: No Changes Objective Vitals Vital Signs Date Time Temp Pulse Resp B/P (MAP) Pulse Ox O2 Delivery O2 Flow Rate FiO2 12/20/24 08:42 97.8 74 18 111/80 (90) 97 97.8 12/19/24 20:00 Room Air* 0 21 Intake/Output Intake and Output 12/20/24 07:00 Intake Total 1350 ml Output Total 2300 ml Balance -950 ml Intake Oral 1250 ml IV Total 100 ml Output Urine Total 2300 ml # Voids 6 Medications Current Medications Medications Dose Ordered Sig/Kim Route Start Time Stop Time Status Last Admin Dose Admin Propranolol HCl 10 mg TID PO 12/16/24 22:00 12/19/24 15:42 10 MG Atorvastatin Calcium 40 mg HS PO 12/16/24 22:00 12/19/24 21:58 40 MG Ondansetron HCl 4 mg Q4HP PRN IV 12/16/24 21:30 Enoxaparin Sodium 40 mg DAILY SC 12/17/24 10:00 12/19/24 10:15 40 MG Acetaminophen 650 mg Q6HP PRN PO 12/16/24 21:30 Divalproex Sodium 500 mg TID PO 12/17/24 22:00 12/20/24 05:35 500 MG Risperidone 3 mg BID PO 12/17/24 22:00 12/19/24 21:57 3 MG Lactulose 30 ml DAILY PO 12/18/24 10:00 12/19/24 10:15 30 ML Clonazepam 0.5 mg Q6HP PRN PO 12/17/24 17:15 Melatonin 6 mg HS PO 12/17/24 22:00 12/19/24 21:57 6 MG Docusate Sodium 100 mg BID PO 12/17/24 22:00 12/19/24 21:58 100 MG Ertapenem 1 gm/ Sodium Chloride 50 ml @ 100 mls/hr DAILY IV 12/20/24 10:00 Laboratory Results Laboratory Tests 12/17/24 05:21 Urinalysis Test 12/16/24 12:30 Urine Color Yellow (Yellow) Urine Clarity Turbid (Clear) H Urine pH 6.0 (5.0-9.0) Urine Specific [place] 1.028 (1.001-1.035) Urine Protein 1+ (Negative) H Urine Ketones Trace (Negative) Urine Blood 1+ /uL (Negative) H Urine Nitrite 2+ (Negative) H Urine Bilirubin Negative (Negative) Urine Urobilinogen Normal mg/dL (Negative) Urine Leukocyte Esterase 3+ /uL (Negative) Urine RBC 28 /hpf (0 - 3) Urine Microscopic WBC 301 /HPF (0-3) H Urine Squamous Epithelial Cells Few /hpf (<5) Urine Bacteria Mod /hpf (None Seen) H Urine Mucus Few (None Seen) Urine Glucose Normal mg/dL (Normal) Microbiology Microbiology Date/Time Source Procedure Growth Status 12/16/24 12:30 Voided Urine Urine Culture - Final Escherichia coli - ESBL Complete 12/16/24 12:05 Blood Blood Culture - Preliminary NO GROWTH AFTER 72 HOURS OF INCUBATION. Resulted Labs and/or images reviewed: Labs reviewed by me, Image(s) reviewed by me Assessment/Plan Assessment/Plan Sepsis secondary to complicated UTI with ESBL E coli: Invanz 1 g IV daily for three weeks Acute generalized weakness Acute metabolic encephalopathy Acute COPD exacerbation Hypertension Hypercholesterolemia Seizures Schizophrenia [facility] Invanz for three weeks for which the patient agreed Plan discussed with: Patient My Orders Orders - BETHANY EMERY MD Procedure Category Date Status Time Ertapenem Sod Inj PHA 12/20/24 In Process (Invanz) 10:00 Insert Midline ORDERS 12/20/24 Transmitted 08:47 Covid19 Antigen [facility] 12/20/24 Logged Date of Service: Dec 20, 2024 Billing Provider: BETHANY EMERY MD Common Visit Codes: [id number] INP/OBS CARE(HIGH) BETHANY EMERY MD Dec 20, 2024 09:17
--- NOTE | 2024-12-20 09:25 | DVHDS2 ---
Discharge Summary Date of Admission Dec 16, 2024 at 21:21 Date of Discharge: Dec 20, 2024 Admitting Diagnosis Altered mental status and confusion Wounds: None Labs/Diagnostic Data: Laboratory Results Test 12/17/24 05:21 12/16/24 12:30 12/16/24 11:52 12/16/24 11:40 White Blood Count 9.6 10^3/uL (4.4-10.8) Red Blood Count 4.40 10^6/uL (4.5-5.90) Hemoglobin 14.2 g/dL (13.5-17.5) Hematocrit 41.5 % (41.0-53.0) Mean Corpuscular Volume 94.2 fL (80.0-100.0) Mean Corpuscular Hemoglobin 32.2 pg (28.0-32.0) Mean Corpuscular Hemoglobin Concent 34.2 g/dL (32.0-36.0) Red Cell Distribution Width 16.3 % (11.8-14.3) Platelet Count 198 10^3/uL (140-450) Mean Platelet Volume 9.9 fL (6.9-10.8) Neutrophils (%) (Auto) 55.9 % (37.0-80.0) Lymphocytes (%) (Auto) 31.7 % (10.0-50.0) Monocytes (%) (Auto) 10.7 % (0.0-12.0) Eosinophils (%) (Auto) 1.1 % (0.0-7.0) Basophils (%) (Auto) 0.6 % (0.0-2.0) Neutrophils # (Auto) 5.4 10 ^3/uL (1.6-8.6) Lymphocytes # (Auto) 3.0 10 ^3/uL (0.4-5.4) Monocytes # (Auto) 1.0 10 ^3/uL (0-1.3) Eosinophils # (Auto) 0.1 10 ^3/uL (0-0.8) Basophils # (Auto) 0.1 10 ^3/uL (0-0.2) Nucleated Red Blood Cells 0.0 % Sodium Level 144 mmol/L (136-145) Potassium Level 3.8 mmol/L (3.5-5.1) Chloride Level 110 mmol/L (98-107) Carbon Dioxide Level 26 mmol/L (20-31) Anion Gap 8 (5-15) Blood Urea Nitrogen 17 mg/dL (9-23) Creatinine 0.90 mg/dL (0.700-1.30) Glomerular Filtration Rate Calc 90 mL/min (>90) BUN/Creatinine Ratio 18.9 (10.0-20.0) Serum Glucose 121 mg/dL (74-106) Calcium Level 9.1 mg/dL (8.7-10.4) Urine Color Yellow (Yellow) Urine Clarity Turbid (Clear) Urine pH 6.0 (5.0-9.0) Urine Specific [place] 1.028 (1.001-1.035) Urine Protein 1+ (Negative) Urine Ketones Trace (Negative) Urine Blood 1+ /uL (Negative) Urine Nitrite 2+ (Negative) Urine Bilirubin Negative (Negative) Urine Urobilinogen Normal mg/dL (Negative) Urine Leukocyte Esterase 3+ /uL (Negative) Urine RBC 28 /hpf (0 - 3) Urine Microscopic WBC 301 /HPF (0-3) Urine Squamous Epithelial Cells Few /hpf (<5) Urine Bacteria Mod /hpf (None Seen) Urine Mucus Few (None Seen) Urine Glucose Normal mg/dL (Normal) Lactic Acid Level 0.8 mmol/L (0.4-2.0) Troponin I High Sensitivity 3 ng/L (</=54) B-Type Natriuretic Peptide 65.94 pg/mL (0-100) Total Bilirubin 0.3 mg/dL (0.2-1.0) Aspartate Amino Transferase (AST) 21 U/L (13-40) Alanine Aminotransferase (ALT) 13 U/L (7-40) Alkaline Phosphatase 66 U/L (46-116) Total Protein 6.3 g/dL (5.7-8.2) Albumin 3.4 g/dL (3.2-4.8) Other Laboratory Tests 12/17/24 05:21 Brief Hx & Hospital Course: 74-year-old male with a history of hypertension COPD hypercholesterolemia seizures and schizophrenia [facility] burden for generalized weakness and altered mental status. Patient found to be in sepsis secondary to urinary tract infection started on Rocephin urine cultures came positive for ESBL E coli and he was started on Invanz 1 g IV daily which he will continue for three weeks in the assisted facility at the time of discharge is afebrile alert vital signs are stable. Patient agrees for SNF placement. Consults/Reason for consult None Operations or Procedures None Condition at Discharge: Fair Final Diagnosis/Problems List Sepsis secondary to complicated UTI with ESBL E coli: Invanz 1 g IV daily for three weeks Acute generalized weakness Acute metabolic encephalopathy Acute COPD exacerbation Hypertension Hypercholesterolemia Seizures Schizophrenia Discharge Disposition: Senior Living Facility Discharge Instruct/Medications Diet: Consistent carbohydrate, Cardiac 2g Na,low cholest Activity: Light activity Follow Up/Referral: Follow up with the residential Dr Medications: Invanz 1 g IV daily for three weeks for complicated UTI See the list for other meds Scheduled Atorvastatin Calcium (Atorvastatin Calcium), 1 TAB PO DAILY, (Reported) Divalproex Sodium (Divalproex Sodium Dr), 1 TAB PO TID, (Reported) Docusate Sodium (Docusate Sodium), 1 CAP PO BID, (Reported) Lactulose (Lactulose), 20 GM PO DAILY, (Reported) Melatonin (Kp Melatonin), 6 MG PO HS, (Reported) Propranolol HCl (Propranolol Hydrochloride), 1 TAB PO TID, (Reported) Quetiapine Fumerate (Quetiapine Fumarate), 50 MG PO TID, (Reported) Risperidone (Risperidone), 1 TAB PO BID, (Reported) Trazodone Hcl (Trazodone Hcl), 50 MG PO HS, (Reported) Scheduled PRN Clonidine Hydrochloride (Clonidine Hcl), 0.5 MG PO Q6HP PRN for AGITATION, (Reported) Discontinued Medications Divalproex Sodium (Depakote), 1 TAB PO BID, (Reported) Magnesium Hydroxide (Milk Of Magnesia), 400 MG PO, (Reported) Quetiapine Fumerate (Quetiapine Fumarate), TAB PO, (Reported) Quetiapine Fumerate (Quetiapine Fumarate), TAB PO, (Reported) Risperidone (Risperidone), 0.25 MG PO BID, (Reported) Trazodone Hcl (Trazodone Hcl), 1 TAB PO, (Reported) 39 (Time taken for discharge summary 39 minutes) Discharge Statement: "Patient was advised to return to the ER or call 911 if any headaches, dizziness, shortness of breath, chest pain, abdominal pain, bleeding, fevers, or worsening of medical condition. Patient was counseled about treatment plan, medications, possible side effects, patientverbalized understanding. All questions were answered to the best of my ability. This discharge took greater then 30 minutes in planning, reviewing documentation, counseling the patient, and discussing with other team members." ASSESSMENT ASSESSMENT Hospital Course Improved Assessment Sepsis secondary to complicated UTI with ESBL E coli: Invanz 1 g IV daily for three weeks Acute generalized weakness Acute metabolic encephalopathy Acute COPD exacerbation Hypertension Hypercholesterolemia Seizures Schizophrenia Date of Service: Dec 20, 2024 Billing Provider: BETHANY EMERY MD Common Visit Codes: 71376-BOC/OBS DISCH DAY >30min BETHANY EMERY MD Dec 20, 2024 09:25
[2024-12-20] MEDS: ERTAPENEM SOD INJ 1 GM in SODIUM CHL 0.9% 50 ML IV SCH (10:00)
[2024-12-20] MEDS: ceFAZolin 2 GM/D5W50ml 0 ML IV ONE (10:25)
[2024-12-20 11:57] VITALS: BP 110/63; PULSE 60; RESP 18; TEMP 36.6; O2SAT 95
[2024-12-20 13:00] VITALS: BP 101/72; PULSE 86; RESP 14; TEMP 97.6; O2SAT 98
[2024-12-20 16:45] VITALS: BP 101/63; PULSE 69; RESP 16; TEMP 98.1; O2SAT 98
== END 2024-12-20 19:48 | DRG 871 ==
LOC: ER 11:05 → EDBD 11:05 → OVERFLOW 21:21 → CENTRAL 12-17 12:19
PROVIDERS: ADMIT Family Medicine; ATTEND Family Medicine
PROC: 05HF33Z Insertion of Infusion Device into Left Cephalic Vein, Percutaneous Approach (ICD-10-PCS; principal; 2024-12-20)
PROC: B54NZZA Ultrasonography of Left Upper Extremity Veins, Guidance (ICD-10-PCS; 2024-12-20)
DX: A41.51 Sepsis due to Escherichia coli [E. coli] (principal); G93.41 Metabolic encephalopathy; N39.0 Urinary tract infection, site not specified; J44.1 Chronic obstructive pulmonary disease with (acute) exacerbation; Z16.12 Extended spectrum beta lactamase (ESBL) resistance; I10 Essential (primary) hypertension; G40.909 Epilepsy, unspecified, not intractable, without status epilepticus; K21.9 Gastro-esophageal reflux disease without esophagitis; F20.9 Schizophrenia, unspecified; R31.29 Other microscopic hematuria; E78.00 Pure hypercholesterolemia, unspecified; Z79.899 Other long term (current) drug therapy; Z90.81 Acquired absence of spleen
CPT/HCPCS: 36415; 71045; 80048; 80053; 81001; 83605; 83880; 84484; 85025; 87040; 87086; 87088; 87186; 93005; 96365; G0378; J1335